=== PATIENT | female | born 1945 | race Two or more races ===

== ENCOUNTER 2018-03-23 09:57 | Emergency (ER) | END 2018-03-23 13:44 | disposition home or self-care (01) ==

== ENCOUNTER 2018-11-28 14:11 | Inpatient (IN) | payer MEDICARE, OTHER ==
[~2018-11-28] VITALS: Ht 162.6 cm; Wt 105.3 kg
[~2018-11-28 14:11] MED LIST: ASPI-903 PO; CEPH-443 PO; CLON-379 PO; ERGO500013 PO; ESOM40CA PO; LANT3I SC; NOVO3I SC; OLME40TA13 PO; ONDA4TAB8 PO; SITA100T11 PO
--- NOTE | 2018-11-28 14:21 | ERD ---
ER Documentation Chief Complaint Chief Complaint Dizziness HPI The patient is a 73-year-old female, presenting to the ER because of dizziness nausea and vomiting and dyspnea that began this morning,. He was uncertain whether she fainted this morning, she had 4 loose bowel movement today. The history is obtained from the daughter. She does not have any neck pain, chest pain, abdominal pain, dysuria, diarrhea. She does not smoke nor drink Past medical history: CAD, history of CHF, diabetes mellitus, chronic kidney disease Past surgical history: Stent PCI last year, cataract surgery ROS All systems reviewed and are negative except as per history of present illness. Medications Home Meds Reported Medications Clonidine Hcl* (Clonidine Hcl*) 0.1 Mg Tab, 0.1 MG PO DAILY, TAB 11/28/18 Carvedilol* (Carvedilol*) 12.5 Mg Tablet, 12.5 MG PO BID, #60 TAB 11/28/18 Insulin Glargine,Hum.rec.anlog (Basaglar Kwikpen U-100) 100 Unit/1 Ml Insuln.pen, 50 UNIT SC QAM, EA 11/28/18 Clopidogrel Bisulfate* (Clopidogrel Bisulfate*) 75 Mg Tablet, 75 MG PO DAILY, #30 TAB 11/28/18 Sitagliptin* (Januvia*) 100 Mg Tablet, 100 MG PO DAILY, #30 TAB 11/28/18 Olmesartan/Hydrochlorothiazide (Olmesartan-Hctz 40-12.5 mg Tab) 1 Each Tablet, 1 EACH PO DAILY, TAB 11/28/18 Aspirin* (Aspirin* EC) 81 Mg Tablet.dr, 81 MG PO DAILY, TAB 11/28/18 Insulin Aspart (Novolog) 100 Unit/1 Ml Vial, 30 UNIT SQ AC DINNER, VIAL 11/28/18 Dexlansoprazole (Dexilant) 60 Mg Cap.dr.mp, 60 MG PO DAILY, #30 CAP 11/28/18 Tolterodine Tartrate* (Tolterodine Tartrate* ER) 4 Mg Cap.er.24h, 4 MG PO DAILY, #30 CAP 11/28/18 Discontinued Reported Medications Insulin Aspart* (Novolog Insulin Pen*) 100 Unit/Ml Soln, 30 UNIT SC WITH DINNER, EA 11/28/18 Ergocalciferol (Vitamin D2) (VITAMIN D2) 50,000 Unit Capsule, 70310 UNIT PO WEEKLY, CAP 03/23/18 Sitagliptin* (Januvia*) 100 Mg Tablet, 100 MG PO DAILY, #30 TAB 03/23/18 Clonidine Hcl* (Clonidine Hcl*) 0.1 Mg Tab, 0.1 MG PO DAILY, TAB 03/23/18 Insulin Aspart* (Novolog Insulin Pen*) 100 Unit/Ml Soln, 20 UNIT SC BID WITH MEALS, EA 03/23/18 Esomeprazole Mag Trihydrate (Nexium) 40 Mg Capsule.dr, 40 MG PO DAILY, #30 CAP 03/23/18 Insulin Glargine* (Lantus*) 100 Unit/Ml Soln, 50 UNIT SC DAILY, #1 VIAL 03/23/18 Olmesartan Medoxomil (Benicar) 40 Mg Tablet, 40 MG PO DAILY, #30 TAB 03/23/18 Aspirin* (Aspirin* Chew) 81 Mg Tab.chew, 81 MG PO DAILY, TAB.CHEW 03/23/18 Discontinued Scripts Ondansetron Hcl* (Zofran*) 4 Mg Tablet, 4 MG PO Q8H PRN for NAUSEA AND/OR VOMITING, #15 TAB Prov:ROSEANNE PLATT MD 03/23/18 Cephalexin* (Keflex*) 500 Mg Capsule, 500 MG PO TID for 7 Days, CAP Prov:ROSEANNE PLATT MD 03/23/18 Allergies Allergies: Coded Allergies: No Known Allergy (Unverified , 11/28/18) PMhx/Soc History of Surgery: Yes (cardiac stents ) Hx Cardiac Disorders: Yes (stent, mi chf) Hx Miscellaneous Medical Probl: Yes (esrd, dm 2) Physical Exam Vitals Vital Signs Date Temp Pulse Resp B/P (MAP) Pulse Ox O2 O2 Flow FiO2 Time Delivery Rate 11/28/18 70 22 98 21 16:17 11/28/18 81 16 123/72 100 Room Air 16:02 (89) 11/28/18 85 16 151/80 98 14:17 (103) Physical Exam Const: No acute distress. Head: Atraumatic. Eyes: Normal Conjunctiva. ENT: Normal External Ears, Nose and Mouth. Neck: Full range of motion. No meningismus. Resp: Clear to auscultation bilaterally. Cardio: Regular rate and rhythm. Abd: Soft, non distended, normal bowel sounds, non tender. Skin: No petechiae or rashes. Back: No midline or flank tenderness. Ext: No cyanosis, or edema. Neur: Awake and alert. No focal deficit Psych: Normal Mood and Affect. Result Diagram: 11/28/18 1441 11/28/18 1441 Results 24 hrs Laboratory Tests Test 11/28/18 14:35 11/28/18 14:41 11/28/18 14:42 11/28/18 15:53 Bedside Glucose 296 mg/dL White Blood Count 12.1 10^3/ul Red Blood Count 4.84 10^6/ul Hemoglobin 13.1 g/dl Hematocrit 39.4 % Mean Corpuscular 81.4 fl Volume Mean Corpuscular 27.1 pg Hemoglobin Mean Corpuscular 33.2 g/dl Hemoglobin Concent Red Cell Distribution 12.9 % Width Platelet Count 132 10^3/UL Mean Platelet Volume 12.2 fl Immature Granulocytes 1.200 % % Neutrophils % 69.9 % Lymphocytes % 18.4 % Monocytes % 5.8 % Eosinophils % 3.9 % Basophils % 0.8 % Nucleated Red Blood 0.0 /100WBC Cells % Immature Granulocytes 0.140 10^3/ul # Neutrophils # 8.5 10^3/ul Lymphocytes # 2.2 10^3/ul Monocytes # 0.7 10^3/ul Eosinophils # 0.5 10^3/ul Basophils # 0.1 10^3/ul Nucleated Red Blood 0.0 10^3/ul Cells # Sodium Level 138 mmol/L Potassium Level 5.8 mmol/L Chloride Level 106 mmol/L Carbon Dioxide Level 24 mmol/L Anion Gap 8 Blood Urea Nitrogen 33 mg/dl Creatinine 1.59 mg/dl Est Glomerular Filtrat mL/min Rate mL/min Glucose Level 320 mg/dl Calcium Level 9.3 mg/dl Troponin I 0.020 ng/ml Prothrombin Time 12.8 Sec Prothrombin Time Ratio 1.0 INR International 0.95 Normalized Ratio Activated 27.3 Sec Partial Thromboplast Time Bedside Urine pH (LAB) 5.5 Bedside Urine Protein 2+ (LAB) Bedside Urine Glucose 0.25% (UA) Bedside Urine Ketones Negative (LAB) Bedside Urine Blood 1+ Bedside Urine Nitrite Negative (LAB) Bedside Urine Negative Leukocyte Esterase (L Test 11/28/18 17:07 Bedside Glucose 250 mg/dL Current Medications Medications Dose Sig/Stiven Start Time Status Last (Trade) Ordered Route PRN Stop Time Admin Dose Reason Admin Sodium 30 gm ONCE STAT 11/28/18 DC 11/28/18 Polystyrene PO 16:01 11/28/18 16:01 Sulfonate 16:14 (Kayexelate 15 Gm Kit (Powder+Sorbi sharlene)) Albuterol 15 mg ONCE STAT 11/28/18 DC 11/28/18 (Proventil INH 16:01 11/28/18 16:16 0.5% (Neb)) 16:14 Insulin 10 unit ONCE STAT 11/28/18 DC 11/28/18 Human IVP 16:01 11/28/18 17:17 Regular 16:14 (Humulin R) Dextrose 50 ml ONCE ONCE 11/28/18 DC (D50w IV 16:30 11/28/18 Syringe) 16:31 Aspirin 162 mg ONCE ONCE 11/28/18 DC 11/28/18 (Aspirin) PO 16:30 11/28/18 17:11 16:31 Ondansetron 4 mg ONCE STAT 11/28/18 DC 11/28/18 HCl (Zofran IV 16:22 11/28/18 16:56 Inj) 16:27 Ondansetron 4 mg STK-MED 11/28/18 DC HCl (Zofran ONCE .ROUTE 16:23 11/28/18 Inj) 16:24 IV Flush 3 ml PER 11/28/18 (NS 3 ml) PROTOCOL IV 17:30 Ondansetron 4 mg Q6H PRN 11/28/18 HCl (Zofran IV 17:30 Inj) NAUSEA/VOMITI NG 650 mg Q6H PRN 11/28/18 Acetaminophen PO .PAIN 1-3 17:30 (Tylenol OR TEMP Tab) 1 tab Q6H PRN 11/28/18 Acetaminophen PO .MOD PAIN 17:30 / 4-6 Hydrocodone Bitart (Hannacroix (5/325)) Morphine 2 mg Q4H PRN 11/28/18 Sulfate IV .SEVERE 17:30 (morphine) PAIN 7-10 Docusate 100 mg Q12H PRN 11/28/18 Sodium PO 17:30 (Colace) .CONSTIPATION Magnesium 30 ml DAILY PRN 11/28/18 Hydroxide PO 17:30 (Milk Of Mag) .CONSTIPATION Heparin 5,000 unit Q12 SC 11/28/18 Sodium 21:00 (Porcine) (Heparin (5000 Units/1ml)) Lorazepam 0.5 mg Q6H PRN 11/28/18 (Ativan) IV ANXIETY 17:30 Albuterol/ 3 ml Q4H RESP 11/28/18 Ipratropium THERAPY PRN 17:30 (Duoneb) HHN SHORTNESS OF BREATH Hydralazine 10 mg Q6H PRN 11/28/18 HCl IV ELEVATED 17:30 (Apresoline) BLOOD PRESSURE 1 tab Q5M PRN 11/28/18 Nitroglycerin SL ANGINA 17:30 (Nitroglyceri n (Sl Tab) 0.4 Mg) Aspirin 325 mg DAILY PO 11/29/18 (Ecotrin) 09:00 Discontinue ONCE ONCE 11/28/18 DC Miscellaneous current oral XX 17:30 11/28/18 sulfonylur... 17:34 Information (* Miscellaneous Pharmacy Order) Diagnostic 1 ea 02 XX 11/29/18 Test (Pha) 02:00 (Accu-Chek) ONCE ONCE 11/28/18 DC Miscellaneous HYPOGLYCEMIA XX 17:30 11/28/18 PROTOCOL 17:34 Information w... (* Miscellaneous Pharmacy Order) Insulin NOVOLOG Q4 SC 11/28/18 Aspart *MILD* 21:00 (Novolog ALGORI... Insulin Pen) Discontinue ONCE ONCE 11/28/18 DC Miscellaneous all previ... XX 17:30 11/28/18 17:34 Information (* Miscellaneous Pharmacy Order) 1 ea NOTE XX 11/28/18 Miscellaneous 18:00 Information Glucose 15 gm Q15M PRN 11/28/18 (Glutose) PO DECREASED 18:00 GLUCOSE Glucose 22.5 gm Q15M PRN 11/28/18 (Glutose) PO DECREASED 18:00 GLUCOSE Dextrose 25 ml Q15M PRN 11/28/18 (D50w IV DECREASED 18:00 Syringe) GLUCOSE Dextrose 50 ml Q15M PRN 11/28/18 (D50w IV DECREASED 18:00 Syringe) GLUCOSE Glucagon 1 mg Q15M PRN 11/28/18 (Glucagen) IM DECREASED 18:00 GLUCOSE Glucose 15 gm Q15M PRN 11/28/18 (Glutose) BUCCAL 18:00 DECREASED GLUCOSE Procedures/MDM [place] [address] Radiology Main Line: [phone] DIAGNOSTIC IMAGING REPORT Patient: SANDY REDMAN : 1945 Age: 73 Sex: F MR #: [id number] [facility] #: [id number] DOS: 11/28/18 1427 Ordering MD: LIVAN RIDER MD Location: E/R Room/Bed: PROCEDURE: Noncontrast CT Head. CLINICAL INDICATION: Syncope. TECHNIQUE: Noncontrast CT of the head was obtained. The administered radiation dose was CTDI vol = 48.03 mGy, DLP = 822.63 mGy-cm. One or more of the following dose reduction techniques were used: Automated exposure control, Adjustment of the mA and/or kV according to patient size, or Use of iterative reconstruction technique. DICOM images are available. COMPARISON: There are no similar studies submitted for comparison. FINDINGS: There is moderate to severe ventricular dilatation greater than minimal sulcal prominence suggesting central greater than peripheral volume loss. There is mild periventricular hypoattenuation suggesting chronic microvascular ischemic changes. There are moderate vascular calcifications within the intracranial carotid arteries. There is loss of espinoza-white differentiation within the right temporal parietal occipital region suggesting acute / recent infarction. There is no acute intracranial hemorrhage. No midline shift is identified. The patient is status post right lens surgery. There is mild to moderate left maxillary sinus air fluid level suggesting acute sinusitis. No destructive osseous lesion is identified. IMPRESSION: 1. Loss of espinoza-white differentiation within the right temporal parietal occipital region suggesting acute / recent infarction. Consider CTA of the head/neck or noncontrast MRI of the brain as clinically warranted. 2. No acute intracranial hemorrhage. 3. Moderate to severe ventriculomegaly which is greater than sulcal prominence suggesting central greater than peripheral volume loss. A component of normal pressure hydrocephalus is not excluded. 4. Mild chronic microvascular ischemic changes. 5. Mild to moderate left maxillary sinus air fluid level suggesting acute sinusitis. Further findings as detailed above. Critical findings were discussed with Livan Gresham on 11/28/2018 at 3:04 PM. RPTAT: PP .Justino Boogie MD, MD Date Time Electronically viewed and signed by .Justino Boogie MD, MD on 11/28/2018 15:07 .F/ CC: LIVAN RIDER MD [phone] [place] [address] Radiology Main Line: [phone] DIAGNOSTIC IMAGING REPORT Patient: SANDY REDMAN : 1945 Age: 73 Sex: F MR #: [id number] DOS: 11/28/18 1427 Ordering MD: LIVAN RIDER MD Location: E/R Room/Bed: PROCEDURE: XR Chest. CLINICAL INDICATION: Syncope . TECHNIQUE: Single frontal chest x-ray. COMPARISON: None. FINDINGS: Cardiomegaly with hilar vascular congestion is present. There are no alveolar infiltrates or effusions. There is right upper lung atelectasis. There is a right paratracheal soft tissue widening with left-sided deviation of the trachea. .. Calcific atherosclerosis of the aorta is present.. The osseous structures are intact. IMPRESSION: Cardiomegaly with calcified aorta. Hilar vascular congestion. Right paratracheal opacity or mass with left-sided tracheal deviation. CT scan of the chest is advised to further evaluate. Results related to ordering physician via [employer]. . RPTAT: GG .Niko Rose MD, Date Time Electronically viewed and signed by .Niko Rose MD, on 11/28/2018 15:21 .L/ CC: LIVAN RIDER MD [phone] EKG: Read by emergency physician Rate/Rhythm: Atrial Fibrillation 77 beats/min QRS, ST, T-waves: No ST elevation, no T inversion , LVH Impression: Abnormal EKG MEDICAL MAKING DECISION: The patient is a 73-year-old female, presenting with acute CVA, acute hyperkalemia, suspected acute syncope, thrombocytopenia, hematuria. She was treated with 1 ampule D50 IV, 10 units of regular insulin IV, Kayexalate 30 g p.o. and albuterol 15 mg nebulizer for acute hyperkalemia, aspirin 162 mg p.o. for acute CVA with good response The differential diagnoses considered include but are not limited to electrolyte imbalance, arrhythmogenic right ventricular dysplasia, Brugada syndrome, left ventricular hypertrophy, pulmonary embolism, QT abnormality, Cosby -Parkinson-White. Departure Diagnosis: Primary Impression: CVA (cerebral vascular accident) Additional Impressions: Hyperkalemia Hematuria Thrombocytopenia Condition: Stable Comments I discussed the findings with the patient. I discussed the patient with Dr Sarabia at 4:05 p , who was made aware of the lab, the treatment, the patient condition. The patient is admitted to Tel Disclaimer: Inadvertent spelling and grammatical errors are likely due to EHR/dictation software use and do not reflect on the overall quality of patient care. Also, please note that the electronic time recorded on this note does not necessarily reflect the actual time of the patient encounter. LIVAN RIDER MD Nov 28, 2018 14:21
[2018-11-28] MEDS ORDERED: TOLT4CAP13 PO (15:32)
[2018-11-28] MEDS ORDERED: DEXL60CA2 PO (15:32)
[2018-11-28] MEDS ORDERED: NOVO3I SC (15:33)
[2018-11-28] MEDS ORDERED: NOV SQ (15:34)
[2018-11-28] MEDS ORDERED: ASPI-817 PO (15:34)
[2018-11-28] MEDS ORDERED: SITA100T11 PO (15:36)
[2018-11-28] MEDS ORDERED: CLOP75TA19 PO (15:36)
[2018-11-28] MEDS ORDERED: OLME1TAB83 PO (15:36)
[2018-11-28] MEDS ORDERED: CARV12.579 PO (15:37)
[2018-11-28] MEDS ORDERED: INSU100I33 SC (15:37)
[2018-11-28] MEDS ORDERED: CLON-379 PO (15:38)
[2018-11-28] MEDS ORDERED: SODIUM POLYSTYRENE 15 GM KIT (POWDER + SORBITOL) PO STA (16:01)
[2018-11-28] MEDS ORDERED: ALBUTEROL 0.5% (NEB) 2.5 MG/0.5 ML AMP INH STA (16:01)
[2018-11-28] MEDS ORDERED: INSULIN REGULAR, HUMAN 100 UNIT/1 ML 3ML VIAL IVP STA (16:01)
[2018-11-28] MEDS ORDERED: ONDANSETRON 4 MG INJ IV STA (16:22)
[2018-11-28] MEDS ORDERED: ONDANSETRON 4 MG INJ ONE (16:23)
[2018-11-28] MEDS ORDERED: ASPIRIN 81 MG TAB PO ONE (16:30)
[2018-11-28] MEDS ORDERED: DEXTROSE 50% 50 ML SYRINGE IV ONE (16:30)
[2018-11-28] MEDS ORDERED: hydrALAzine 20 MG INJ IV PRN (17:30)
[2018-11-28] MEDS ORDERED: DOCUSATE SODIUM 100 MG CAP PO PRN (17:30)
[2018-11-28] MEDS ORDERED: HYDROCODONE/APAP (5/325) TAB PO PRN (17:30)
[2018-11-28] MEDS ORDERED: NACL 0.9% 3 ML SYG IV SCH (17:30)
[2018-11-28] MEDS ORDERED: MAGNESIUM HYDROXIDE 30ML CUP PO PRN (17:30)
[2018-11-28] MEDS ORDERED: ALBUTEROL/IPRATROPIUM (NEB) 3 ML AMP HHN PRN (17:30)
[2018-11-28] MEDS ORDERED: LORAZEPAM 2 MG INJ IV PRN (17:30)
[2018-11-28] MEDS ORDERED: morphine 2 MG INJ IV PRN (17:30)
[2018-11-28] MEDS ORDERED: NITROGLYCERIN (SL) 0.4 MG TAB SL PRN (17:30)
[2018-11-28] MEDS ORDERED: ACETAMINOPHEN 325 MG TAB PO PRN (17:30)
[2018-11-28] MEDS ORDERED: GLUCOSE GEL 15 GRAM TUBE BUCCAL PRN (18:00)
[2018-11-28] MEDS ORDERED: DEXTROSE 50% 50 ML SYRINGE IV PRN ×2 (18:00)
[2018-11-28] MEDS ORDERED: GLUCAGON 1 MG INJ IM PRN (18:00)
[2018-11-28] MEDS ORDERED: GLUCOSE GEL 15 GRAM TUBE PO PRN ×2 (18:00)
--- NOTE | 2018-11-28 20:40 | HP ---
DATE OF ADMISSION: 11/28/2018 IDENTIFICATION: This is a 73-year-old female. CHIEF COMPLAINT: Dizziness, near syncope. HISTORY OF PRESENT ILLNESS: A 73-year-old female with past medical history of CHF, CAD with stent pl acement, hypertension, type 2 diabetes, CKD, who comes in with dizziness. The patient also complaine d of some nausea and some nonbilious, nonbloody vomiting symptoms again this morning. The patient ma y have had a near syncopal event in the morning. She also complained of some loose stools but no ove rt diarrhea. Denied any chest pain or shortness of breath. No constipation, no abdominal pain, no f henry or chills. When she came in today, she had imaging study performed of the brain CT scan that s howed loss of espinoza-white differentiation within the right temporoparietal occipital region suggesting acute or recent infarction. There is also moderate to severe ventriculomegaly which is greater than sulcal prominence suggesting central greater than peripheral volume loss, a component of normal pres sure hydrocephalus not excluded. PAST MEDICAL HISTORY: As stated above. ALLERGIES: NO KNOWN DRUG ALLERGIES. MEDICATIONS AT HOME: 1. Plavix 75 mg daily. 2. Coreg 12.5 mg b.i.d. 3. Clonidine 0.1 mg daily. 4. Olmesartan/hydrochlorothiazide 40/12.5 one tab daily. 5. Aspirin 81 mg daily. 6. Dexilant 60 mg daily. 7. Aspart insulin 30 units with dinner. 8. Basaglar insulin 50 units in the morning. 9. Januvia 100 mg daily. 10. Tolterodine tartrate 4 mg daily. PAST SURGICAL HISTORY: Stent placement in the past. SOCIAL HISTORY: Negative for drinking or IV drug abuse. Unclear about smoking history. FAMILY HISTORY: Noncontributory today. PHYSICAL EXAMINATION: VITAL SIGNS: T-max apparently afebrile, pulse 70 to 85, respirations 16 to 22, blood pressure is 123 to 151 systolic over 72 to 80 diastolic, satting 100% room air. GENERAL: The patient is lying in bed, answering questions appropriately. No acute distress. HEENT: Pupils equal, round, react to light. Extraocular muscles are intact. NECK: Supple, no thyromegaly. LUNGS: Clear to auscultation bilaterally. CARDIOVASCULAR: S1, S2 heard. No rubs or gallops. ABDOMEN: Soft, nontender, nondistended. Normal bowel sounds. No rebound or guarding. MUSCULOSKELETAL: No lower extremity edema bilaterally. NEUROLOGIC: She has got 5/5 strength both in the upper and lower extremities bilaterally. Sensation appears to be intact in the upper and lower extremities bilaterally. Cranial nerves II through XII appear to be intact. Gait was not assessed. LABORATORIES: WBC 12.1, hemoglobin 13.1, hematocrit 39.4, platelets 132. Sodium 138, potassium 5.8, chloride 106, CO2 24, BUN 33, creatinine 1.59, glucose 320. UA shows negative nitrites, negative le ukocyte esterase. We mentioned the head CT findings. There was also a chest x-ray performed that sh ows some cardiomegaly with calcified aorta, hilar vascular congestion, right paratracheal opacity or mass with left-sided tracheal deviation. CT scan of the chest is advised to further evaluate and car otid Doppler study has already been performed, shows no evidence for any hemodynamically significant stenosis in the bilateral internal carotid arteries. ASSESSMENT AND PLAN: A 73-year-old female coming in with dizziness and near syncopal event, nausea, vomiting with signs of acute or recent infarct of the brain: 1. Acute cerebrovascular accident. Again, this is based on the head CT scan imaging results. So we will admit the patient to allow for permissive hypertension at this time. Get neurology consult. C heck echocardiogram. Get PT, OT and speech therapy evaluations. Neuro checks every 4 hours. High-d ose aspirin. Continue her Plavix as well. Place patient on statin. Get an MRI of the brain as well . 2. History of coronary artery disease with PCI. Again, continue the aspirin and Plavix. She will b e on a slightly higher dose of aspirin given the acute stroke. 3. History of congestive heart failure. Again, monitor for now given acute stroke while allowing fo r permissive hypertension, so we are holding her home blood pressure medicines at this time. 4. Hypertension. See above. 5. Type 2 diabetes. Continue home insulins for now. Add sliding scale insulin. Follow up A1c. 6. Hyperkalemia. Again, she did receive in the ER, Kayexalate, albuterol and Humulin insulin. Mira tor BMP. 7. Signs of right paratracheal opacity or mass with left-sided tracheal deviation. We will go ahead and get the CT scan of the chest to further evaluate. Dictated By: BENNETT CONWAY Conf#: [id number] DID#: [id number]
--- NOTE | 2018-11-28 21:00 | CONSI ---
Assessment/Plan Assessment/Plan Assessment/Plan (Recall) 73 F w/ multiple cerebrovascular risk factors, who presents for evaluation of dizziness in the context of GI Sx.. She was noted on head CT to have an acute appearing R hemisphere infarction, for which neurology is consulted.. CUS is unremarkable LDL is at goal P: MRI/A brain for further characterization Agree w/ plavix daily for secondary stroke prevention Await Echo read Add ESR, RPR, UDS Consider 30-day holter as outpatient if the above is unrevealing PT/OT/ST as necessary Other management per primary Will follow clinically Consultation Date/Type/Reason Admit Date/Time Nov 28, 2018 at 16:28 Type of Consult Neurology Reason for Consultation stroke Requesting Provider: BENNETT REHMAN Date/Time of Note DATE: 11/28/18 TIME: 20:58 Hx of Present Illness A 73-year-old female with past medical history of CHF, CAD with stent placement, hypertension, type 2 diabetes, CKD, who comes in with dizziness. The patient also complained of some nausea and some nonbilious, nonbloody vomiting symptoms again this morning. The patient may have had a near syncopal event in the morning. She also complained of some loose stools but no overt diarrhea. D enied any chest pain or shortness of breath. No constipation, no abdominal pain, no fevers or chills. When she came in today, she had imaging study performed of the brain CT scan that showed loss of espinoza-white differentiation within the right temporoparietal occipital region suggesting acute or recent infarction. There is also moderate to severe ventriculomegaly which is greater than sulcal prominence suggesting central greater than peripheral volume loss, a component of normal pressure hydrocephalus not excluded. She was noted on head CT to have an acute appearing infarction in the right hemisphere, for which neurology is consulted. 12 PT ROS ow neg Objective Exam Vitals Vital Signs Date Temp Pulse Resp B/P (MAP) Pulse Ox O2 O2 Flow FiO2 Time Delivery Rate 11/28/18 86 18 134/66 97 Room Air 19:30 (88) 11/28/18 21 16:17 Exam PE: Gen Appearance: No Apparent Distress HEENT: Normocephalic Cardiovascular: Regular rate Lungs: Clear bilaterally Abdomen: Soft Extremities: Dry NE: The patient was alert and oriented, able to spell WORLD backwards, and able to recall all three words after a five minute delay. Language was normal. Fund of knowledge was normal. Pupils were equal and reactive to light. There was no afferent pupillary defect. Visual moore were normal. Funduscopic examination was limited. Extra-ocular movements were full. Ptosis was absent. There was no nystagmus. Facial sensation was normal. Face was symmetric with normal strength. Hearing was intact. Palate movements were normal. Neck strength was normal. There was normal tongue bulk and speed of movement. Tone was normal. Muscle bulk was normal. I did not see fasciculations. Arms and legs were strong. Vibration sensation was normal. Temperature and pinprick sensation was normal. Rapid alternating movements were normal. There was no dysmetria. There was no intention tremor. Gait was deferred due to bedrest. Arm and leg reflexes were 2+ and symmetric. Valadez's sign was absent. Plantar responses were flexor. Results Result Diagram: 11/28/18 1441 11/28/18 1441 Results 24hrs Laboratory Tests Test 11/28/18 14:35 11/28/18 14:41 11/28/18 14:42 11/28/18 15:53 Bedside Glucose 296 H White Blood Count 12.1 H Red Blood Count 4.84 Hemoglobin 13.1 Hematocrit 39.4 Mean Corpuscular Volume 81.4 L Mean Corpuscular 27.1 L Hemoglobin Mean Corpuscular 33.2 Hemoglobin Concent Red Cell Distribution 12.9 Width Platelet Count 132 L Mean Platelet Volume 12.2 H Immature Granulocytes % 1.200 H Neutrophils % 69.9 Lymphocytes % 18.4 Monocytes % 5.8 Eosinophils % 3.9 Basophils % 0.8 Nucleated Red Blood 0.0 Cells % Immature Granulocytes # 0.140 H Neutrophils # 8.5 H Lymphocytes # 2.2 Monocytes # 0.7 Eosinophils # 0.5 Basophils # 0.1 Nucleated Red Blood 0.0 Cells # Sodium Level 138 Potassium Level 5.8 H Chloride Level 106 Carbon Dioxide Level 24 Anion Gap 8 Blood Urea Nitrogen 33 H Creatinine 1.59 H Est Glomerular Filtrat Rate mL/min Glucose Level 320 H Calcium Level 9.3 Troponin I 0.020 Prothrombin Time 12.8 Prothrombin Time Ratio 1.0 INR International 0.95 Normalized Ratio Activated 27.3 Partial Thromboplast Time Bedside Urine pH (LAB) 5.5 Bedside Urine Protein 2+ H (LAB) Bedside Urine Glucose 0.25% H (UA) Bedside Urine Ketones Negative (LAB) Bedside Urine Blood 1+ H Bedside Urine Nitrite Negative (LAB) Bedside Urine Negative Leukocyte Esterase (L Test 11/28/18 17:07 11/28/18 18:21 11/28/18 18:52 Bedside Glucose 250 H 233 H Creatine Kinase 29 Creatine Kinase Index 4.5 Creatinine Kinase MB 1.30 (Mass) Troponin I 0.031 Free Thyroxine 1.29 Past Medical History reviewed Home Meds Reported Medications Clonidine Hcl* (Clonidine Hcl*) 0.1 Mg Tab, 0.1 MG PO DAILY, TAB 11/28/18 Carvedilol* (Carvedilol*) 12.5 Mg Tablet, 12.5 MG PO BID, #60 TAB 11/28/18 Insulin Glargine,Hum.rec.anlog (Basaglar Kwikpen U-100) 100 Unit/1 Ml Insuln.pen, 50 UNIT SC QAM, EA 11/28/18 Clopidogrel Bisulfate* (Clopidogrel Bisulfate*) 75 Mg Tablet, 75 MG PO DAILY, #30 TAB 11/28/18 Sitagliptin* (Januvia*) 100 Mg Tablet, 100 MG PO DAILY, #30 TAB 11/28/18 Olmesartan/Hydrochlorothiazide (Olmesartan-Hctz 40-12.5 mg Tab) 1 Each Tablet, 1 EACH PO DAILY, TAB 11/28/18 Aspirin* (Aspirin* EC) 81 Mg Tablet.dr, 81 MG PO DAILY, TAB 11/28/18 Insulin Aspart (Novolog) 100 Unit/1 Ml Vial, 30 UNIT SQ AC DINNER, VIAL 11/28/18 Dexlansoprazole (Dexilant) 60 Mg Cap.drKameronmp, 60 MG PO DAILY, #30 CAP 11/28/18 Tolterodine Tartrate* (Tolterodine Tartrate* ER) 4 Mg Cap.er.24h, 4 MG PO DAILY, #30 CAP 11/28/18 Discontinued Reported Medications Insulin Aspart* (Novolog Insulin Pen*) 100 Unit/Ml Soln, 30 UNIT SC WITH DINNER, EA 11/28/18 Ergocalciferol (Vitamin D2) (VITAMIN D2) 50,000 Unit Capsule, 36010 UNIT PO WEEKLY, CAP 03/23/18 Sitagliptin* (Januvia*) 100 Mg Tablet, 100 MG PO DAILY, #30 TAB 10/24/18 Clonidine Hcl* (Clonidine Hcl*) 0.1 Mg Tab, 0.1 MG PO DAILY, TAB 03/23/18 Insulin Aspart* (Novolog Insulin Pen*) 100 Unit/Ml Soln, 20 UNIT SC BID WITH MEALS, EA 03/23/18 Esomeprazole Mag Trihydrate (Nexium) 40 Mg Capsule.dr, 40 MG PO DAILY, #30 CAP 03/23/18 Insulin Glargine* (Lantus*) 100 Unit/Ml Soln, 50 UNIT SC DAILY, #1 VIAL 03/23/18 Olmesartan Medoxomil (Benicar) 40 Mg Tablet, 40 MG PO DAILY, #30 TAB 03/23/18 Aspirin* (Aspirin* Chew) 81 Mg Tab.chew, 81 MG PO DAILY, TAB.CHEW 03/23/18 Discontinued Scripts Ondansetron Hcl* (Zofran*) 4 Mg Tablet, 4 MG PO Q8H PRN for NAUSEA AND/OR VOMITING, #15 TAB Prov:ROSEANNE PLATT MD 03/23/18 Cephalexin* (Keflex*) 500 Mg Capsule, 500 MG PO TID for 7 Days, CAP Prov:ROSEANNE PLATT MD 03/23/18 Medications Current Medications IV Flush (NS 3 ml) 3 ml PER PROTOCOL IV ; Start 11/28/18 at 17:30 Ondansetron HCl (Zofran Inj) 4 mg Q6H PRN IV NAUSEA/VOMITING; Start 11/28/18 at 17:30 Acetaminophen (Tylenol Tab) 650 mg Q6H PRN PO .PAIN 1-3 OR TEMP; Start 11/28/18 at 17:30 Acetaminophen/ Hydrocodone Bitart ([place] (5/325)) 1 tab Q6H PRN PO .MOD PAIN 4- 6; Start 11/28/18 at 17:30 Morphine Sulfate (morphine) 2 mg Q4H PRN IV .SEVERE PAIN 7-10; Start 11/28/18 at 17:30 Docusate Sodium (Colace) 100 mg Q12H PRN PO .CONSTIPATION; Start 11/28/18 at 17:30 Magnesium Hydroxide (Milk Of Mag) 30 ml DAILY PRN PO .CONSTIPATION; Start 11/28/18 at 17:30 Heparin Sodium (Porcine) (Heparin (5000 Units/1ml)) 5,000 unit Q12 SC ; Start 11/28/18 at 21:00 Lorazepam (Ativan) 0.5 mg Q6H PRN IV ANXIETY; Start 11/28/18 at 17:30 Albuterol/ Ipratropium (Duoneb) 3 ml Q4H RESP THERAPY PRN HHN SHORTNESS OF BREATH; Start 11/28/18 at 17:30 Hydralazine HCl (Apresoline) 10 mg Q6H PRN IV ELEVATED BLOOD PRESSURE; Start 11/28/18 at 17:30 Nitroglycerin (Nitroglycerin (Sl Tab) 0.4 Mg) 1 tab Q5M PRN SL ANGINA; Start 11/28/18 at 17:30 Aspirin (Ecotrin) 325 mg DAILY PO ; Start 11/29/18 at 09:00 Diagnostic Test (Pha) (Accu-Chek) 1 ea 02 XX ; Start 11/29/18 at 02:00 Insulin Aspart (Novolog Insulin Pen) NOVOLOG *MILD* ALGORI... Q4 SC ; Start 11/28/18 at 21:00 Miscellaneous Information 1 ea NOTE XX ; Start 11/28/18 at 18:00 Glucose (Glutose) 15 gm Q15M PRN PO DECREASED GLUCOSE; Start 11/28/18 at 18:00 Glucose (Glutose) 22.5 gm Q15M PRN PO DECREASED GLUCOSE; Start 11/28/18 at 18:00 Dextrose (D50w Syringe) 25 ml Q15M PRN IV DECREASED GLUCOSE; Start 11/28/18 at 18:00 Dextrose (D50w Syringe) 50 ml Q15M PRN IV DECREASED GLUCOSE; Start 11/28/18 at 18:00 Glucagon (Glucagen) 1 mg Q15M PRN IM DECREASED GLUCOSE; Start 11/28/18 at 18:00 Glucose (Glutose) 15 gm Q15M PRN BUCCAL DECREASED GLUCOSE; Start 11/28/18 at 18:00 Clopidogrel Bisulfate (plaVIX) 75 mg DAILY PO ; Start 11/29/18 at 09:00 Pantoprazole (Protonix Tab) 40 mg DAILY@06 PO ; Start 11/29/18 at 06:00 Allergies: Coded Allergies: No Known Allergy (Unverified , 11/28/18) Social History Smoking Status: Never smoker ORTIZ REDDING Nov 28, 2018 21:00
[2018-11-28] MEDS: HEPARIN 5,000 UNIT/1 ML VIAL SC SCH (22:30)
[2018-11-28] MEDS: INSULIN ASPART [NOVOLOG] 3 ML PEN SC SCH (22:56)
[2018-11-28 23:05] VITALS: Ht 162.6 cm; Wt 105.3 kg
[2018-11-29] VITALS (7 sets, daily range): BP systolic 123–160; BP diastolic 63–90; PULSE 78–100; RESP 18–20
[2018-11-29] MEDS: INSULIN ASPART [NOVOLOG] 3 ML PEN SC SCH ×3 (01:00→09:23)
[2018-11-29] MEDS: ACCU-CHEK XX SCH (02:12)
[2018-11-29] MEDS: PANTOPRAZOLE (EC) 40 MG TAB PO SCH (05:53)
[2018-11-29] MEDS: CLOPIDOGREL 75 MG TAB PO SCH (08:57)
[2018-11-29] MEDS: ASPIRIN (EC) 325 MG TAB PO SCH (08:58)
[2018-11-29] MEDS: HEPARIN 5,000 UNIT/1 ML VIAL SC SCH ×3 (09:02→21:00)
--- NOTE | 2018-11-29 11:21 | PN ---
Date/Time of Note Date/Time of Note DATE: 11/29/18 TIME: 11:12 Assessment/Plan VTE Prophylaxis Risk score (from Ns)>0 risk: 4 SCD applied (from Ns): No SCD contraindicated: other Pharmacological prophylaxis: heparin Lines/Catheters IV Catheter Type (from [facility]): [place] Assessment/Plan Hospital Course S: Seen by neurology team yesterday. Per nursing staff patient has refused MRI. O: VS - see below PE: GENERAL: lying in bed, answering questions appropriately. No acute distress. HEENT: Pupils equal, round, react to light. Extraocular muscles are intact. NECK: Supple, no thyromegaly. LUNGS: Clear to auscultation bilaterally. CARDIOVASCULAR: S1, S2 heard. No rubs or gallops. ABDOMEN: Soft, nontender, nondistended. Normal bowel sounds. No rebound or guarding. MUSCULOSKELETAL: No lower extremity edema bilaterally. NEUROLOGIC: She has got 5/5 strength both in the upper and lower extremities bilaterally. Sensation appears to be intact in the upper and lower extremities bilaterally. Cranial nerves II through XII appear to be intact. ASSESSMENT AND PLAN: 73-year-old female coming in with dizziness and near syncopal event, nausea, vomiting with signs of acute or recent infarct of the brain. 1. Acute cerebrovascular accident-this is what it appears to be, based on what was found on the head CT scan imaging results. -For now continue to allow for permissive hypertension -Follow-up further recommendations from neurology consult, echocardiogram. -Continue PT, OT and speech therapy evaluations. - Neuro checks every 4 hours, High-dose aspirin, Plavix as well. -Lipitor 80 mg daily 2. History of coronary artery disease with PCI. -Again, continue the aspirin and Plavix. 3. History of congestive heart failure. - Again, monitor for now given acute stroke while allowing for permissive hypertension, so we are holding her home blood pressure medicines at this time. 4. Hypertension. See above. 5. Type 2 diabetes-A1c was 6.5 - Continue home insulins for now, sliding scale insulin. 6. Hyperkalemia. Again, she did receive in the ER, Kayexalate, albuterol and Humulin insulin. - Monitor BMP. 7. Signs of right paratracheal opacity or mass with left-sided tracheal deviation. -Follow-up results of CT scan of the chest to further evaluate. Result Diagram: 11/29/18 0548 11/29/18 0548 Results 24hrs Laboratory Tests Test 11/28/18 14:35 11/28/18 14:41 11/28/18 14:42 11/28/18 15:53 Bedside Glucose 296 H White Blood Count 12.1 H Red Blood Count 4.84 Hemoglobin 13.1 Hematocrit 39.4 Mean Corpuscular Volume 81.4 L Mean Corpuscular 27.1 L Hemoglobin Mean Corpuscular 33.2 Hemoglobin Concent Red Cell Distribution 12.9 Width Platelet Count 132 L Mean Platelet Volume 12.2 H Immature Granulocytes % 1.200 H Neutrophils % 69.9 Lymphocytes % 18.4 Monocytes % 5.8 Eosinophils % 3.9 Basophils % 0.8 Nucleated Red Blood 0.0 Cells % Immature Granulocytes # 0.140 H Neutrophils # 8.5 H Lymphocytes # 2.2 Monocytes # 0.7 Eosinophils # 0.5 Basophils # 0.1 Nucleated Red Blood 0.0 Cells # Sodium Level 138 Potassium Level 5.8 H Chloride Level 106 Carbon Dioxide Level 24 Anion Gap 8 Blood Urea Nitrogen 33 H Creatinine 1.59 H Est Glomerular Filtrat Rate mL/min Glucose Level 320 H Calcium Level 9.3 Troponin I 0.020 Prothrombin Time 12.8 Prothrombin Time Ratio 1.0 INR International 0.95 Normalized Ratio Activated 27.3 Partial Thromboplast Time Bedside Urine pH (LAB) 5.5 Bedside Urine Protein 2+ H (LAB) Bedside Urine Glucose 0.25% H (UA) Bedside Urine Ketones Negative (LAB) Bedside Urine Blood 1+ H Bedside Urine Nitrite Negative (LAB) Bedside Urine Negative Leukocyte Esterase (L Test 11/28/18 17:07 11/28/18 18:21 11/28/18 18:52 11/28/18 22:04 Bedside Glucose 250 H 233 H 202 Creatine Kinase 29 Creatine Kinase Index 4.5 Creatinine Kinase MB 1.30 (Mass) Troponin I 0.031 Free Thyroxine 1.29 Test 11/28/18 23:14 11/28/18 23:31 11/29/18 02:11 11/29/18 05:48 Bedside Glucose 208 155 139 Creatine Kinase 27 Creatine Kinase Index 4.9 Creatinine Kinase MB 1.31 (Mass) Troponin I 0.040 White Blood Count 11.8 H Red Blood Count 4.84 Hemoglobin 13.2 Hematocrit 39.5 Mean Corpuscular Volume 81.6 L Mean Corpuscular 27.3 L Hemoglobin Mean Corpuscular 33.4 Hemoglobin Concent Red Cell Distribution 13.0 Width Platelet Count 136 L Mean Platelet Volume 11.9 H Immature Granulocytes % 0.900 H Neutrophils % 59.0 Lymphocytes % 28.5 Monocytes % 6.5 Eosinophils % 4.5 Basophils % 0.6 Nucleated Red Blood 0.0 Cells % Immature Granulocytes # 0.110 H Neutrophils # 6.9 Lymphocytes # 3.4 H Monocytes # 0.8 Eosinophils # 0.5 Basophils # 0.1 Nucleated Red Blood 0.0 Cells # Sodium Level 142 Potassium Level 4.9 Chloride Level 108 Carbon Dioxide Level 25 Anion Gap 9 Blood Urea Nitrogen 31 H Creatinine 1.48 H Est Glomerular Filtrat Rate mL/min Glucose Level 142 # Hemoglobin A1c 6.5 H Calcium Level 9.5 Phosphorus Level 3.9 Magnesium Level 1.8 Triglycerides Level 419 H Cholesterol Level 170 LDL Cholesterol, 52 Calculated HDL Cholesterol 34 Cholesterol/HDL Ratio 5.0 Thyroid Stimulating 0.550 Hormone (TSH) Test 11/29/18 09:08 Bedside Glucose 201 Exam/Review of Systems Exam Vitals Vital Signs Date Temp Pulse Resp B/P (MAP) Pulse Ox O2 O2 Flow FiO2 Time Delivery Rate 11/29/18 98.5 87 20 144/65 97 Room Air 07:38 (91) 11/28/18 21 16:17 Results Results 24hrs Laboratory Tests Test 11/28/18 14:35 11/28/18 14:41 11/28/18 14:42 11/28/18 15:53 Bedside Glucose 296 H White Blood Count 12.1 H Red Blood Count 4.84 Hemoglobin 13.1 Hematocrit 39.4 Mean Corpuscular Volume 81.4 L Mean Corpuscular 27.1 L Hemoglobin Mean Corpuscular 33.2 Hemoglobin Concent Red Cell Distribution 12.9 Width Platelet Count 132 L Mean Platelet Volume 12.2 H Immature Granulocytes % 1.200 H Neutrophils % 69.9 Lymphocytes % 18.4 Monocytes % 5.8 Eosinophils % 3.9 Basophils % 0.8 Nucleated Red Blood 0.0 Cells % Immature Granulocytes # 0.140 H Neutrophils # 8.5 H Lymphocytes # 2.2 Monocytes # 0.7 Eosinophils # 0.5 Basophils # 0.1 Nucleated Red Blood 0.0 Cells # Sodium Level 138 Potassium Level 5.8 H Chloride Level 106 Carbon Dioxide Level 24 Anion Gap 8 Blood Urea Nitrogen 33 H Creatinine 1.59 H Est Glomerular Filtrat Rate mL/min Glucose Level 320 H Calcium Level 9.3 Troponin I 0.020 Prothrombin Time 12.8 Prothrombin Time Ratio 1.0 INR International 0.95 Normalized Ratio Activated 27.3 Partial Thromboplast Time Bedside Urine pH (LAB) 5.5 Bedside Urine Protein 2+ H (LAB) Bedside Urine Glucose 0.25% H (UA) Bedside Urine Ketones Negative (LAB) Bedside Urine Blood 1+ H Bedside Urine Nitrite Negative (LAB) Bedside Urine Negative Leukocyte Esterase (L Test 11/28/18 17:07 11/28/18 18:21 11/28/18 18:52 11/28/18 22:04 Bedside Glucose 250 H 233 H 202 Creatine Kinase 29 Creatine Kinase Index 4.5 Creatinine Kinase MB 1.30 (Mass) Troponin I 0.031 Free Thyroxine 1.29 Test 11/28/18 23:14 11/28/18 23:31 11/29/18 02:11 11/29/18 05:48 Bedside Glucose 208 155 139 Creatine Kinase 27 Creatine Kinase Index 4.9 Creatinine Kinase MB 1.31 (Mass) Troponin I 0.040 White Blood Count 11.8 H Red Blood Count 4.84 Hemoglobin 13.2 Hematocrit 39.5 Mean Corpuscular Volume 81.6 L Mean Corpuscular 27.3 L Hemoglobin Mean Corpuscular 33.4 Hemoglobin Concent Red Cell Distribution 13.0 Width Platelet Count 136 L Mean Platelet Volume 11.9 H Immature Granulocytes % 0.900 H Neutrophils % 59.0 Lymphocytes % 28.5 Monocytes % 6.5 Eosinophils % 4.5 Basophils % 0.6 Nucleated Red Blood 0.0 Cells % Immature Granulocytes # 0.110 H Neutrophils # 6.9 Lymphocytes # 3.4 H Monocytes # 0.8 Eosinophils # 0.5 Basophils # 0.1 Nucleated Red Blood 0.0 Cells # Sodium Level 142 Potassium Level 4.9 Chloride Level 108 Carbon Dioxide Level 25 Anion Gap 9 Blood Urea Nitrogen 31 H Creatinine 1.48 H Est Glomerular Filtrat Rate mL/min Glucose Level 142 # Hemoglobin A1c 6.5 H Calcium Level 9.5 Phosphorus Level 3.9 Magnesium Level 1.8 Triglycerides Level 419 H Cholesterol Level 170 LDL Cholesterol, 52 Calculated HDL Cholesterol 34 Cholesterol/HDL Ratio 5.0 Thyroid Stimulating 0.550 Hormone (TSH) Test 11/29/18 09:08 Bedside Glucose 201 Medications Medication Current Medications IV Flush (NS 3 ml) 3 ml PER PROTOCOL IV ; Start 11/28/18 at 17:30 Ondansetron HCl (Zofran Inj) 4 mg Q6H PRN IV NAUSEA/VOMITING; Start 11/28/18 at 17:30 Acetaminophen (Tylenol Tab) 650 mg Q6H PRN PO .PAIN 1-3 OR TEMP; Start 11/28/18 at 17:30 Acetaminophen/ Hydrocodone Bitart ([place] (5/325)) 1 tab Q6H PRN PO .MOD PAIN 4- 6; Start 11/28/18 at 17:30 Morphine Sulfate (morphine) 2 mg Q4H PRN IV .SEVERE PAIN 7-10; Start 11/28/18 at 17:30 Docusate Sodium (Colace) 100 mg Q12H PRN PO .CONSTIPATION; Start 11/28/18 at 17:30 Magnesium Hydroxide (Milk Of Mag) 30 ml DAILY PRN PO .CONSTIPATION; Start 11/28/18 at 17:30 Heparin Sodium (Porcine) (Heparin (5000 Units/1ml)) 5,000 unit Q12 SC Last administered on 11/29/18at 09:02; Admin Dose 5,000 UNIT; Start 11/28/18 at 21:00 Lorazepam (Ativan) 0.5 mg Q6H PRN IV ANXIETY; Start 11/28/18 at 17:30 Albuterol/ Ipratropium (Duoneb) 3 ml Q4H RESP THERAPY PRN HHN SHORTNESS OF BREATH; Start 11/28/18 at 17:30 Hydralazine HCl (Apresoline) 10 mg Q6H PRN IV ELEVATED BLOOD PRESSURE; Start 11/28/18 at 17:30 Nitroglycerin (Nitroglycerin (Sl Tab) 0.4 Mg) 1 tab Q5M PRN SL ANGINA; Start 11/28/18 at 17:30 Aspirin (Ecotrin) 325 mg DAILY PO Last administered on 11/29/18at 08:58; Admin Dose 325 MG; Start 11/29/18 at 09:00 Diagnostic Test (Pha) (Accu-Chek) 1 ea 02 XX Last administered on 11/29/18at 02:12; Admin Dose 1 EA; Start 11/29/18 at 02:00 Insulin Aspart (Novolog Insulin Pen) NOVOLOG *MILD* ALGORI... Q4 SC Last administered on 11/29/18at 09:23; Admin Dose 2 UNIT; Start 11/28/18 at 21:00 Miscellaneous Information 1 ea NOTE XX ; Start 11/28/18 at 18:00 Glucose (Glutose) 15 gm Q15M PRN PO DECREASED GLUCOSE; Start 11/28/18 at 18:00 Glucose (Glutose) 22.5 gm Q15M PRN PO DECREASED GLUCOSE; Start 11/28/18 at 18:00 Dextrose (D50w Syringe) 25 ml Q15M PRN IV DECREASED GLUCOSE; Start 11/28/18 at 18:00 Dextrose (D50w Syringe) 50 ml Q15M PRN IV DECREASED GLUCOSE; Start 11/28/18 at 18:00 Glucagon (Glucagen) 1 mg Q15M PRN IM DECREASED GLUCOSE; Start 11/28/18 at 18:00 Glucose (Glutose) 15 gm Q15M PRN BUCCAL DECREASED GLUCOSE; Start 11/28/18 at 18:00 Clopidogrel Bisulfate (plaVIX) 75 mg DAILY PO Last administered on 11/29/18at 08:57; Admin Dose 75 MG; Start 11/29/18 at 09:00 Pantoprazole (Protonix Tab) 40 mg DAILY@06 PO ; Start 11/29/18 at 06:00 BENNETT REHMAN Nov 29, 2018 11:21
[2018-11-29] MEDS: ATORVASTATIN 80 MG TAB PO SCH (11:50)
[2018-11-29] MEDS: SOD CHLORIDE 0.45% 1,000 ML IV SCH (11:51)
[2018-11-29] MEDS ORDERED: INSULIN ASPART [NOVOLOG] 3 ML PEN SC SCH (17:25)
[2018-11-29] MEDS: Insulin NOVOLOG SS MILD Algorithm (SS with meals and bedtime) SC SCH ×3 (17:43→21:00)
[2018-11-29] MEDS: ONDANSETRON 4 MG INJ IV PRN (19:23)
[2018-11-30] MEDS: ACCU-CHEK XX SCH (01:19)
[2018-11-30] MEDS: SOD CHLORIDE 0.45% 1,000 ML IV SCH (03:44)
[2018-11-30 03:55] VITALS: BP 173/79; PULSE 77; RESP 20
[2018-11-30] MEDS: PANTOPRAZOLE (EC) 40 MG TAB PO SCH (06:00)
--- NOTE | 2018-11-30 07:32 | RADRPT ---
Echocardiogram Report Patient Name: SANDY REDMANPatient ID: [id number] : 1945 (73y 3m)Study Date: 11/29/2018 9:07:45 AM Gender: FAccession #: [id number] Tech: Yaniv Pavon [facility] Location: [id number] Ref.Physician: BENNETT REHMAN Height(Cm): BSA: Weight(Kg): Quality: AdequateOrder Physician: BENNETT REHMAN Account #: Procedures: Echocardiographic Report: Transthoracic echocardiogram with complete 2D, M-Mode, and doppler examination. Indications: Cerebrovascular Accident. Measurements: 2D/M Mode Doppler Measurement Value Normal Range Measurement Value Normal Range LVIDd 2D 4.3 [ 3.8 - 5.2 ] cm AV Peak Nigel 1.6 [ 100.0 - 170.0 ] cm/sec LVIDs 2D 2.8 [ 2.2 - 3.5 ] cm AV Peak PG 10.0 [ 2.0 - 9.0 ] mmHg LVPWd 2D 1.4 [ 0.6 - 0.9 ] cm LVOT Peak Nigel 1.1 [ 70.0 - 110.0 ] cm/sec IVSd 2D 1.5 [ 0.6 - 0.9 ] cm LVOT Peak PG 5.0 [ 2.0 - 6.0 ] mmHg AoR Diam 2D 3.0 [ 2.3 - 3.1 ] cm MV E Peak Nigel 0.8 [ 60.0 - 130.0 ] cm/sec EDV 2D 81.7 [ 46.0 - 106.0 ] ml MV A Peak Nigel 1.1 [ 100.0 - 120.0 ] cm/sec ESV 2D 29.8 [ 14.0 - 42.0 ] ml MV E/A 0.8 [ 0.8 - 1.5 ] ratio EF 2D 63.5 [ 54.0 - 74.0 ] percent MV Decel Time 134 [ 104 - 258 ] msec LA Dimen 2D 3.9 [ 2.7 - 3.8 ] cm Lat E` Nigel 0.1 [ 10.0 - 15.0 ] cm/sec Lateral E/E` 7.4 [ 1.0 - 2.0 ] ratio Med E` Nigel 0.1 cm/sec MV E/A 0.8 [ 0.8 - 1.5 ] ratio RA Pressure 10.0 mmHg Findings: Left Ventricle: Normal left ventricular systolic function. Normal left ventricular cavity size. Moderate concentric left ventricular hypertrophy. Ejection fraction is visually estimated at 65 %. Tissue Doppler/Mitral Doppler indices are consistent with impaired relaxation (Stage I diastolic dysfunction). Right Ventricle: Normal right ventricular size. Normal right ventricular systolic function. Left Atrium: The left atrium is normal in size. Right Atrium: The right atrium is normal in size. Mitral Valve: Mild mitral leaflet calcification. Mild mitral annular calcification. Trace mitral regurgitation. Aortic Valve: Aortic valve not well visualized. Aortic cusps appear mildly calcified. No aortic regurgitation. Tricuspid Valve: Normal appearance of the tricuspid valve. Unable to obtain RVSP due to minimal presence of tricuspid regurgitation. Pericardium: Normal pericardium with no significant pericardial effusion. Aorta: Normal aortic root. IVC: Normal size and normal respiratory collapse consistent with normal right atrial pressure. Conclusions: Normal left ventricular systolic function. Normal left ventricular cavity size. Moderate concentric left ventricular hypertrophy. Ejection fraction is visually estimated at 65 %. Tissue Doppler/Mitral Doppler indices are consistent with impaired relaxation (Stage I diastolic dysfunction). The left atrium is normal in size. Mild mitral leaflet calcification. Mild mitral annular calcification. Trace mitral regurgitation. Aortic valve not well visualized. Aortic cusps appear mildly calcified. No aortic regurgitation. Normal appearance of the tricuspid valve. Unable to obtain RVSP due to minimal presence of tricuspid regurgitation. Electronically Signed By: Mark Abel 2018-11-30 07:31:24 PDT
[2018-11-30] MEDS: Insulin NOVOLOG SS MILD Algorithm (SS with meals and bedtime) SC SCH ×4 (07:40→20:30)
[2018-11-30 08:06] VITALS: BP 163/85; PULSE 85; RESP 18
[2018-11-30] MEDS: ATORVASTATIN 80 MG TAB PO SCH (08:07)
[2018-11-30] MEDS: ASPIRIN (EC) 325 MG TAB PO SCH (08:07)
[2018-11-30] MEDS: CLOPIDOGREL 75 MG TAB PO SCH (08:07)
[2018-11-30] MEDS: HEPARIN 5,000 UNIT/1 ML VIAL SC SCH ×2 (08:16→20:30)
--- NOTE | 2018-11-30 10:57 | CONS ---
Assessment/Plan Assessment/Plan Assessment/Plan (Recall) 73 F w/ multiple cerebrovascular risk factors, who presents for evaluation of dizziness in the context of GI Sx.. She was noted on head CT to have an acute appearing R hemisphere infarction, for which neurology is consulted.. Patient is currently refusing MRI brain CUS is unremarkable LDL is at goal ESR 15, RPR neg, UDS neg P: Agree w/ plavix daily for secondary stroke prevention Consider 30-day holter as outpatient PT/OT/ST as necessary Other management per primary Will follow clinically Consultation Date/Type/Reason Admit Date/Time Nov 28, 2018 at 16:28 Type of Consult Neurology Reason for Consultation stroke Requesting Provider: BENNETT REHMAN Date/Time of Note DATE: 11/30/18 TIME: 10:55 24 HR Interval Summary Free Text/Dictation Refusing MRI Exam/Review of Systems Exam Vitals Vital Signs Date Temp Pulse Resp B/P (MAP) Pulse Ox O2 O2 Flow FiO2 Time Delivery Rate 11/30/18 98.6 85 18 163/85 96 08:06 (111) 11/30/18 Room Air 03:55 11/28/18 21 16:17 Results Result Diagram: 11/30/18 0538 11/30/18 0538 Results 24hrs Laboratory Tests Test 11/29/18 11:48 11/29/18 17:39 11/29/18 19:11 11/29/18 20:52 Bedside Glucose 225 H 284 H 249 H 237 H Test 11/30/18 04:00 11/30/18 05:38 11/30/18 07:36 Urine Opiates Screen Negative Urine Barbiturates Negative Urine Amphetamines Negative Screen Urine Benzodiazepines Negative Screen Urine Cocaine Screen Negative Urine Cannabinoids Negative White Blood Count 9.3 # Red Blood Count 4.40 Hemoglobin 12.2 Hematocrit 36.5 L Mean Corpuscular Volume 83.0 Mean Corpuscular 27.7 L Hemoglobin Mean Corpuscular 33.4 Hemoglobin Concent Red Cell Distribution 13.0 Width Platelet Count 124 L Mean Platelet Volume 12.0 H Immature Granulocytes % 0.900 H Neutrophils % 58.7 Lymphocytes % 29.3 Monocytes % 6.6 Eosinophils % 3.7 Basophils % 0.8 Nucleated Red Blood 0.0 Cells % Immature Granulocytes # 0.080 H Neutrophils # 5.5 Lymphocytes # 2.7 Monocytes # 0.6 Eosinophils # 0.3 Basophils # 0.1 Nucleated Red Blood 0.0 Cells # Sodium Level 141 Potassium Level 4.7 Chloride Level 107 Carbon Dioxide Level 26 Anion Gap 8 Blood Urea Nitrogen 35 H Creatinine 1.82 H Est Glomerular Filtrat Rate mL/min Glucose Level 232 H Calcium Level 9.0 Bedside Glucose 179 Medications Medication Current Medications IV Flush (NS 3 ml) 3 ml PER PROTOCOL IV ; Start 11/28/18 at 17:30 Ondansetron HCl (Zofran Inj) 4 mg Q6H PRN IV NAUSEA/VOMITING Last administered on 11/29/18at 19:23; Admin Dose 4 MG; Start 11/28/18 at 17:30 Acetaminophen (Tylenol Tab) 650 mg Q6H PRN PO .PAIN 1-3 OR TEMP; Start 11/28/18 at 17:30 Acetaminophen/ Hydrocodone Bitart ([place] (5/325)) 1 tab Q6H PRN PO .MOD PAIN 4- 6; Start 11/28/18 at 17:30 Morphine Sulfate (morphine) 2 mg Q4H PRN IV .SEVERE PAIN 7-10; Start 11/28/18 at 17:30 Docusate Sodium (Colace) 100 mg Q12H PRN PO .CONSTIPATION; Start 11/28/18 at 17:30 Magnesium Hydroxide (Milk Of Mag) 30 ml DAILY PRN PO .CONSTIPATION; Start 11/28/18 at 17:30 Heparin Sodium (Porcine) (Heparin (5000 Units/1ml)) 5,000 unit Q12 SC Last administered on 11/30/18at 08:16; Admin Dose 5,000 UNIT; Start 11/28/18 at 21:00 Lorazepam (Ativan) 0.5 mg Q6H PRN IV ANXIETY; Start 11/28/18 at 17:30 Albuterol/ Ipratropium (Duoneb) 3 ml Q4H RESP THERAPY PRN HHN SHORTNESS OF BREATH; Start 11/28/18 at 17:30 Hydralazine HCl (Apresoline) 10 mg Q6H PRN IV ELEVATED BLOOD PRESSURE; Start 11/28/18 at 17:30 Nitroglycerin (Nitroglycerin (Sl Tab) 0.4 Mg) 1 tab Q5M PRN SL ANGINA; Start 11/28/18 at 17:30 Aspirin (Ecotrin) 325 mg DAILY PO Last administered on 11/30/18 08:07; Admin Dose 325 MG; Start 11/29/18 at 09:00 Diagnostic Test (Pha) (Accu-Chek) 1 ea 02 XX Last administered on 11/29/18at 02:12; Admin Dose 1 EA; Start 11/29/18 at 02:00 Miscellaneous Information 1 ea NOTE XX ; Start 11/28/18 at 18:00 Glucose (Glutose) 15 gm Q15M PRN PO DECREASED GLUCOSE; Start 11/28/18 at 18:00 Glucose (Glutose) 22.5 gm Q15M PRN PO DECREASED GLUCOSE; Start 11/28/18 at 18:00 Dextrose (D50w Syringe) 25 ml Q15M PRN IV DECREASED GLUCOSE; Start 11/28/18 at 18:00 Dextrose (D50w Syringe) 50 ml Q15M PRN IV DECREASED GLUCOSE; Start 11/28/18 at 18:00 Glucagon (Glucagen) 1 mg Q15M PRN IM DECREASED GLUCOSE; Start 11/28/18 at 18:00 Glucose (Glutose) 15 gm Q15M PRN BUCCAL DECREASED GLUCOSE; Start 11/28/18 at 18:00 Clopidogrel Bisulfate (plaVIX) 75 mg DAILY PO Last administered on 11/30/18at 08:07; Admin Dose 75 MG; Start 11/29/18 at 09:00 Pantoprazole (Protonix Tab) 40 mg DAILY@06 PO ; Start 11/29/18 at 06:00 Atorvastatin Calcium (Lipitor) 80 mg DAILY PO Last administered on 11/30/18at 08:07; Admin Dose 80 MG; Start 11/29/18 at 11:30 Sodium Chloride 1,000 ml @ 75 mls/hr [id number] IV Last administered on 11/30/18at 03:44; Admin Dose 75 MLS/HR; Start 11/29/18 at 12:00 Insulin Aspart (Novolog Insulin Pen) (Adult SC Insulin - Mild Algorithm)... AC MEALS AND BEDTIME SC Last administered on 11/30/18at 07:40; Admin Dose 1 UNIT; Start 11/29/18 at 17:25 ORTIZ REDDING Nov 30, 2018 10:57
--- NOTE | 2018-11-30 11:53 | PN ---
Date/Time of Note Date/Time of Note DATE: 11/30/18 TIME: 11:45 Assessment/Plan VTE Prophylaxis Risk score (from Ns)>0 risk: 4 [place] [facility] [place] contraindicated: other Pharmacological prophylaxis: heparin Lines/Catheters IV [facility] Type [facility] Peripheral IV Assessment/Plan Hospital Course S: Patient seen by neurology team, again still refusing MRI. Also refused the NovoLog and heparin. O: VS - see below PE: GENERAL: lying in bed, answering questions appropriately. No acute distress. HEENT: Pupils equal, round, react to light. Extraocular muscles are intact. NECK: Supple, no thyromegaly. LUNGS: Clear to auscultation bilaterally. CARDIOVASCULAR: S1, S2 heard. No rubs or gallops. ABDOMEN: Soft, nontender, nondistended. Normal bowel sounds. No rebound or guarding. MUSCULOSKELETAL: No lower extremity edema bilaterally. NEUROLOGIC: She has got 5/5 strength both in the upper and lower extremities bilaterally. Sensation appears to be intact in the upper and lower extremities bilaterally. Cranial nerves II through XII appear to be intact. 2D echo: Conclusions: Normal left ventricular systolic function. Normal left ventricular cavity size. Moderate concentric left ventricular hypertrophy. Ejection fraction is visually estimated at 65 %. Tissue Doppler/Mitral Doppler indices are consistent with impaired relaxation (Stage I diastolic dysfunction). The left atrium is normal in size. Mild mitral leaflet calcification. Mild mitral annular calcification. Trace mitral regurgitation. Aortic valve not well visualized. Aortic cusps appear mildly calcified. No aortic regurgitation. Normal appearance of the tricuspid valve. Unable to obtain RVSP due to minimal presence of tricuspid regurgitation. CT chest: IMPRESSION: 1. Scattered indeterminate pulmonary nodules are seen bilaterally measuring up to 6 mm in the left upper lobe - CT followup in 3-6 months is recommended to assess interval stability. 2. There is complete atelectasis / collapse of the right middle lobe, of uncertain etiology 3. Mild pulmonary emphysema. 4. Mild cardiomegaly. Coronary arterial and aortic atherosclerotic calcifications. 5. Right lobe of the thyroid gland is enlarged and multinodular, causing leftward deviation of the trachea - consider ultrasound correlation. 6. Moderate hepatic steatosis. Cholelithiasis, without evidence for cholecystitis. ASSESSMENT AND PLAN: 73-year-old female coming in with dizziness and near syncopal event, nausea, vomiting with signs of acute or recent infarct of the brain. 1. Acute cerebrovascular accident-this is what it appears to be, based on what was found on the head CT scan imaging results. -Follow-up further recommendations from neurology consult, echocardiogram. -Continue PT, OT and speech therapy evaluations. -Neuro checks every 4 hours, High-dose aspirin, Plavix as well. -Lipitor 80 mg daily 2. History of coronary artery disease with PCI. -Again, continue the aspirin and Plavix. -Restart some of patient's home blood pressure medicines 3. History of congestive heart failure. - Again, will restart some of patient's home blood pressure medicines now 4. Hypertension. See above. 5. Type 2 diabetes-A1c was 6.5 -We will restart patient's home insulins for now, sliding scale insulin. 6. Hyperkalemia. Again, she did receive in the ER, Kayexalate, albuterol and Humulin insulin. - Monitor BMP. 7. Signs of right paratracheal opacity or mass with left-sided tracheal deviation-CT chest results reviewed -We will go ahead and obtain ultrasound to further evaluate the thyroid gland. Result Diagram: 11/30/18 0538 11/30/18 0538 Results 24hrs Laboratory Tests Test 11/29/18 11:48 11/29/18 17:39 11/29/18 19:11 11/29/18 20:52 Bedside Glucose 225 H 284 H 249 H 237 H Test 11/30/18 04:00 11/30/18 05:38 11/30/18 07:36 Urine Opiates Screen Negative Urine Barbiturates Negative Urine Amphetamines Negative Screen Urine Benzodiazepines Negative Screen Urine Cocaine Screen Negative Urine Cannabinoids Negative White Blood Count 9.3 # Red Blood Count 4.40 Hemoglobin 12.2 Hematocrit 36.5 L Mean Corpuscular Volume 83.0 Mean Corpuscular 27.7 L Hemoglobin Mean Corpuscular 33.4 Hemoglobin Concent Red Cell Distribution 13.0 Width Platelet Count 124 L Mean Platelet Volume 12.0 H Immature Granulocytes % 0.900 H Neutrophils % 58.7 Lymphocytes % 29.3 Monocytes % 6.6 Eosinophils % 3.7 Basophils % 0.8 Nucleated Red Blood 0.0 Cells % Immature Granulocytes # 0.080 H Neutrophils # 5.5 Lymphocytes # 2.7 Monocytes # 0.6 Eosinophils # 0.3 Basophils # 0.1 Nucleated Red Blood 0.0 Cells # Sodium Level 141 Potassium Level 4.7 Chloride Level 107 Carbon Dioxide Level 26 Anion Gap 8 Blood Urea Nitrogen 35 H Creatinine 1.82 H Est Glomerular Filtrat Rate mL/min Glucose Level 232 H Calcium Level 9.0 Bedside Glucose 179 Exam/Review of Systems Exam Vitals Vital Signs Date Temp Pulse Resp B/P (MAP) Pulse Ox O2 O2 Flow FiO2 Time Delivery Rate 11/30/18 98.6 85 18 163/85 96 08:06 (111) 11/30/18 Room Air 03:55 11/28/18 21 16:17 Results Results 24hrs Laboratory Tests Test 11/29/18 11:48 11/29/18 17:39 11/29/18 19:11 11/29/18 20:52 Bedside Glucose 225 H 284 H 249 H 237 H Test 11/30/18 04:00 11/30/18 05:38 11/30/18 07:36 Urine Opiates Screen Negative Urine Barbiturates Negative Urine Amphetamines Negative Screen Urine Benzodiazepines Negative Screen Urine Cocaine Screen Negative Urine Cannabinoids Negative White Blood Count 9.3 # Red Blood Count 4.40 Hemoglobin 12.2 Hematocrit 36.5 L Mean Corpuscular Volume 83.0 Mean Corpuscular 27.7 L Hemoglobin Mean Corpuscular 33.4 Hemoglobin Concent Red Cell Distribution 13.0 Width Platelet Count 124 L Mean Platelet Volume 12.0 H Immature Granulocytes % 0.900 H Neutrophils % 58.7 Lymphocytes % 29.3 Monocytes % 6.6 Eosinophils % 3.7 Basophils % 0.8 Nucleated Red Blood 0.0 Cells % Immature Granulocytes # 0.080 H Neutrophils # 5.5 Lymphocytes # 2.7 Monocytes # 0.6 Eosinophils # 0.3 Basophils # 0.1 Nucleated Red Blood 0.0 Cells # Sodium Level 141 Potassium Level 4.7 Chloride Level 107 Carbon Dioxide Level 26 Anion Gap 8 Blood Urea Nitrogen 35 H Creatinine 1.82 H Est Glomerular Filtrat Rate mL/min Glucose Level 232 H Calcium Level 9.0 Bedside Glucose 179 Medications Medication Current Medications IV Flush (NS 3 ml) 3 ml PER PROTOCOL IV ; Start 11/28/18 at 17:30 Ondansetron HCl (Zofran Inj) 4 mg Q6H PRN IV NAUSEA/VOMITING Last administered on 11/29/18at 19:23; Admin Dose 4 MG; Start 11/28/18 at 17:30 Acetaminophen (Tylenol Tab) 650 mg Q6H PRN PO .PAIN 1-3 OR TEMP; Start 11/28/18 at 17:30 Acetaminophen/ Hydrocodone Bitart ([address] (5/325)) 1 tab Q6H PRN PO .MOD PAIN 4- 6; Start 11/28/18 at 17:30 Morphine Sulfate (morphine) 2 mg Q4H PRN IV .SEVERE PAIN 7-10; Start 11/28/18 at 17:30 Docusate Sodium (Colace) 100 mg Q12H PRN PO .CONSTIPATION; Start 11/28/18 at 17:30 Magnesium Hydroxide (Milk Of Mag) 30 ml DAILY PRN PO .CONSTIPATION; Start 11/28/18 at 17:30 Heparin Sodium (Porcine) (Heparin (5000 Units/1ml)) 5,000 unit Q12 SC Last administered on 11/30/18at 08:16; Admin Dose 5,000 UNIT; Start 11/28/18 at 21:00 Lorazepam (Ativan) 0.5 mg Q6H PRN IV ANXIETY; Start 11/28/18 at 17:30 Albuterol/ Ipratropium (Duoneb) 3 ml Q4H RESP THERAPY PRN HHN SHORTNESS OF BREATH; Start 11/28/18 at 17:30 Hydralazine HCl (Apresoline) 10 mg Q6H PRN IV ELEVATED BLOOD PRESSURE; Start 11/28/18 at 17:30 Nitroglycerin (Nitroglycerin (Sl Tab) 0.4 Mg) 1 tab Q5M PRN SL ANGINA; Start 11/28/18 at 17:30 Aspirin (Ecotrin) 325 mg DAILY PO Last administered on 11/30/18at 08:07; Admin Dose 325 MG; Start 11/29/18 at 09:00 Diagnostic Test (Pha) (Accu-Chek) 1 ea 02 XX Last administered on 11/29/18at 02:12; Admin Dose 1 EA; Start 11/29/18 at 02:00 Miscellaneous Information 1 ea NOTE XX ; Start 11/28/18 at 18:00 Glucose (Glutose) 15 gm Q15M PRN PO DECREASED GLUCOSE; Start 11/28/18 at 18:00 Glucose (Glutose) 22.5 gm Q15M PRN PO DECREASED GLUCOSE; Start 11/28/18 at 18:00 Dextrose (D50w Syringe) 25 ml Q15M PRN IV DECREASED GLUCOSE; Start 11/28/18 at 18:00 Dextrose (D50w Syringe) 50 ml Q15M PRN IV DECREASED GLUCOSE; Start 11/28/18 at 18:00 Glucagon (Glucagen) 1 mg Q15M PRN IM DECREASED GLUCOSE; Start 11/28/18 at 18:00 Glucose (Glutose) 15 gm Q15M PRN BUCCAL DECREASED GLUCOSE; Start 11/28/18 at 18:00 Clopidogrel Bisulfate (plaVIX) 75 mg DAILY PO Last administered on 11/30/18at 08:07; Admin Dose 75 MG; Start 11/29/18 at 09:00 Pantoprazole (Protonix Tab) 40 mg DAILY@06 PO ; Start 11/29/18 at 06:00 Atorvastatin Calcium (Lipitor) 80 mg DAILY PO Last administered on 11/30/18at 08:07; Admin Dose 80 MG; Start 11/29/18 at 11:30 Sodium Chloride 1,000 ml @ 75 mls/hr [id number] IV Last administered on 11/30/18at 03:44; Admin Dose 75 MLS/HR; Start 11/29/18 at 12:00 Insulin Aspart (Novolog Insulin Pen) (Adult SC Insulin - Mild Algorithm)... AC MEALS AND BEDTIME SC Last administered on 11/30/18at 07:40; Admin Dose 1 UNIT; Start 11/29/18 at 17:25 BENNETT REHMAN Nov 30, 2018 11:53
[2018-11-30 12:00] VITALS: BP 122/84; PULSE 84; RESP 20
[2018-11-30] MEDS: SOD CHLORIDE 0.9% 1,000 ML IV SCH (12:14)
[2018-11-30] MEDS ORDERED: INSULIN GLARGINE [LANTus] (100 UNITS/ML) SYG SC SCH (13:00)
[2018-11-30] MEDS: ONDANSETRON 4 MG INJ IV PRN (14:39)
[2018-11-30 16:00] VITALS: BP 150/78; PULSE 96; RESP 20
[2018-11-30] MEDS ORDERED: INSULIN ASPART 30 UNIT SQ SCH (17:25)
[2018-11-30 20:00] VITALS: BP 178/88; PULSE 87; RESP 19
[2018-12-01] VITALS: BP 114/59; PULSE 62; RESP 18
[2018-12-01] MEDS: ACCU-CHEK XX SCH (02:00)
[2018-12-01] MEDS: SOD CHLORIDE 0.9% 1,000 ML IV SCH ×2 (02:15→11:35)
[2018-12-01 04:00] VITALS: BP 171/77; PULSE 63; RESP 18
[2018-12-01] MEDS: PANTOPRAZOLE (EC) 40 MG TAB PO SCH (05:26)
[2018-12-01 07:26] VITALS: BP 153/83; PULSE 74; RESP 18
[2018-12-01] MEDS: Insulin NOVOLOG SS MILD Algorithm (SS with meals and bedtime) SC SCH ×2 (07:44→11:32)
[2018-12-01] MEDS ORDERED: INSULIN GLARGINE [LANTus] (100 UNITS/ML) SYG SC SCH (08:00)
[2018-12-01] MEDS: CLOPIDOGREL 75 MG TAB PO SCH (08:31)
[2018-12-01] MEDS: ASPIRIN (EC) 325 MG TAB PO SCH (08:31)
[2018-12-01] MEDS: ATORVASTATIN 80 MG TAB PO SCH (08:31)
[2018-12-01] MEDS: HEPARIN 5,000 UNIT/1 ML VIAL SC SCH (08:32)
[2018-12-01] MEDS ORDERED: TOLTERODINE (SR) 4 MG CAP PO SCH (09:00)
[2018-12-01 11:12] VITALS: BP 112/64; PULSE 66; RESP 18
[2018-12-01] MEDS ORDERED: MAGNESIUM SULFATE 1 GM/D5W 100 ML IVPB ONE (12:00)
--- NOTE | 2018-12-01 13:14 | PDOCDIS ---
Discharge Instructions CONDITION [id number] Patient Condition: [id number] Stable HOME CARE INSTRUCTIONS: [id number] Diet Instructions: [id number] Low Fat /Cholesterol ACTIVITY: [id number] Activity Restrictions: [id number] Slowly Increase Activity Rest between Activity Avoid heavy lifting FOLLOW UP/APPOINTMENTS Follow-up Plan Please take your medication as prescribed, see your doctor the clinic in the next 1 week. BENNETT REHMAN Dec 01, 2018 13:14
[2018-12-01] MEDS ORDERED: ATOR-2 PO (13:18)
--- NOTE | 2018-12-01 13:22 | DS ---
Date/Time of Note Date/Time of Note DATE: 12/01/18 TIME: 13:16 Discharge Summary Admission/Discharge Info Admit Date/Time Nov 28, 2018 at 16:28 Discharge Date/Time Discharge Diagnosis 1. Acute cerebrovascular accident-found on the head CT scan imaging results. 2. History of coronary artery disease with PCI. 3. History of congestive heart failure. 4. Hypertension. 5. Type 2 diabetes-A1c was 6.5 6. Hyperkalemia -resolved again, she did receive in the ER, Kayexalate, albuterol and Humulin insulin. 7. Signs of right paratracheal opacity or mass with left-sided tracheal deviation-CT chest results and thyroid ultrasound results reviewed: Outpatient follow-up with endocrinology team for further evaluation and possible biopsy then Patient Condition: Stable Procedures Head CT: IMPRESSION: 1. Loss of espinoza-white differentiation within the right temporal parietal occipital region suggesting acute / recent infarction. Consider CTA of the head/neck or noncontrast MRI of the brain as clinically warranted. 2. No acute intracranial hemorrhage. 3. Moderate to severe ventriculomegaly which is greater than sulcal prominence suggesting central greater than peripheral volume loss. A component of normal pressure hydrocephalus is not excluded. 4. Mild chronic microvascular ischemic changes. 5. Mild to moderate left maxillary sinus air fluid level suggesting acute sinusitis. 2D echo: Conclusions: Normal left ventricular systolic function. Normal left ventricular cavity size. Moderate concentric left ventricular hypertrophy. Ejection fraction is visually estimated at 65 %. Tissue Doppler/Mitral Doppler indices are consistent with impaired relaxation (Stage I diastolic dysfunction). The left atrium is normal in size. Mild mitral leaflet calcification. Mild mitral annular calcification. Trace mitral regurgitation. Aortic valve not well visualized. Aortic cusps appear mildly calcified. No aortic regurgitation. Normal appearance of the tricuspid valve. Unable to obtain RVSP due to minimal presence of tricuspid regurgitation. CT chest: IMPRESSION: 1. Scattered indeterminate pulmonary nodules are seen bilaterally measuring up to 6 mm in the left upper lobe - CT followup in 3-6 months is recommended to assess interval stability. 2. There is complete atelectasis / collapse of the right middle lobe, of uncertain etiology 3. Mild pulmonary emphysema. 4. Mild cardiomegaly. Coronary arterial and aortic atherosclerotic calcifications. 5. Right lobe of the thyroid gland is enlarged and multinodular, causing leftward deviation of the trachea - consider ultrasound correlation. 6. Moderate hepatic steatosis. Cholelithiasis, without evidence for cholecystitis. Hx of Present Illness 73-year-old female with past medical history of CHF, CAD with stent placement, hypertension, type 2 diabetes, CKD, who comes in with dizziness. The patient also complained of some nausea and some nonbilious, nonbloody vomiting symptoms again this morning. The patient may have had a near syncopal event in the morning. She also complained of some loose stools but no overt diarrhea. Den ied any chest pain or shortness of breath. No constipation, no abdominal pain, no fevers or chills. When she came in today, she had imaging study performed of the brain CT scan that showed loss of espinoza-white differentiation within the right temporoparietal occipital region suggesting acute or recent infarction. There is also moderate to severe ventriculomegaly which is greater than sulcal prominence suggesting central greater than peripheral volume loss, a component of normal pressure hydrocephalus not excluded. Hospital Course Patient was admitted with acute stroke. Seen by neurology team during this hospital stay. She worked with physical therapy, occupational therapy, evaluated by speech therapy team. She was able to ambulate, tolerated p.o. diet. She had no other significant focal deficits. She continued on high-dose Lipitor, aspirin, Plavix while she was here as recommended by neurology team. Her vital signs are stable on day of discharge. There was an abnormal finding with a thyroid gland both on the CT chest findings and the thyroid ultrasound results. This was discussed with bottomer operator who recommended outpatient follow-up for possible biopsy at that time of the thyroid gland. This was relayed to the patient and the family who agreed for this. Patient be discharged home today improved condition. See below for full list of discharge medications. Home Meds Reported Medications Clonidine Hcl* (Clonidine Hcl*) 0.1 Mg Tab, 0.1 MG PO DAILY, TAB 11/28/18 Carvedilol* (Carvedilol*) 12.5 Mg Tablet, 12.5 MG PO BID, #60 TAB 11/28/18 Insulin Glargine,Hum.rec.anlog (Basaglar Kwikpen U-100) 100 Unit/1 Ml Insuln.pen, 50 UNIT SC QAM, EA 11/28/18 Clopidogrel Bisulfate* (Clopidogrel Bisulfate*) 75 Mg Tablet, 75 MG PO DAILY, #30 TAB 11/28/18 Sitagliptin* (Januvia*) 100 Mg Tablet, 100 MG PO DAILY, #30 TAB 11/28/18 Olmesartan/Hydrochlorothiazide (Olmesartan-Hctz 40-12.5 mg Tab) 1 Each Tablet, 1 EACH PO DAILY, TAB 11/28/18 Aspirin* (Aspirin* EC) 81 Mg Tablet.dr, 81 MG PO DAILY, TAB 11/28/18 Insulin Aspart (Novolog) 100 Unit/1 Ml Vial, 30 UNIT SQ AC DINNER, VIAL 11/28/18 Dexlansoprazole (Dexilant) 60 Mg Cap.mp, 60 MG PO DAILY, #30 CAP 11/28/18 Tolterodine Tartrate* (Tolterodine Tartrate* ER) 4 Mg Cap.er.24h, 4 MG PO DAILY, #30 CAP 11/28/18 Discontinued Reported Medications Insulin Aspart* (Novolog Insulin Pen*) 100 Unit/Ml Soln, 30 UNIT SC WITH DINNER, EA 11/28/18 Ergocalciferol (Vitamin D2) (VITAMIN D2) 50,000 Unit Capsule, 00311 UNIT PO WEEKLY, CAP 03/23/18 Sitagliptin* (Januvia*) 100 Mg Tablet, 100 MG PO DAILY, #30 TAB 03/23/18 Clonidine Hcl* (Clonidine Hcl*) 0.1 Mg Tab, 0.1 MG PO DAILY, TAB 03/23/18 Insulin Aspart* (Novolog Insulin Pen*) 100 Unit/Ml Soln, 20 UNIT SC BID WITH MEALS, EA 03/23/18 Esomeprazole Mag Trihydrate (Nexium) 40 Mg Capsule.dr, 40 MG PO DAILY, #30 CAP 03/23/18 Insulin Glargine* (Lantus*) 100 Unit/Ml Soln, 50 UNIT SC DAILY, #1 VIAL 03/23/18 Olmesartan Medoxomil (Benicar) 40 Mg Tablet, 40 MG PO DAILY, #30 TAB 03/23/18 Aspirin* (Aspirin* Chew) 81 Mg Tab.chew, 81 MG PO DAILY, TAB.CHEW 03/23/18 Discontinued Scripts Ondansetron Hcl* (Zofran*) 4 Mg Tablet, 4 MG PO Q8H PRN for NAUSEA AND/OR VOMITING, #15 TAB Prov:ROSEANNE PLATT MD 03/23/18 Cephalexin* (Keflex*) 500 Mg Capsule, 500 MG PO TID for 7 Days, CAP Prov:ROSEANNE PLATT MD 03/23/18 Follow-up Plan Please take your medication as prescribed, see your doctor the clinic in the next 1 week. Primary Care Provider Not On Staff Doctor Time spent on discharge: > 30 minutes Pending Labs Laboratory Tests Test 11/30/18 17:15 11/30/18 20:15 12/01/18 05:59 12/01/18 07:41 Bedside 212 209 201 Glucose mg/dL (70-220) mg/dL (70-220) mg/dL (70-220) White Blood 9.6 Count 10^3/ul (4.8-1 0.8) Red Blood 4.50 Count 10^6/ul (4.20- 5.40) Hemoglobin 12.2 g/dl (12.0-16. 0) Hematocrit 36.6 % (37.0-47.0) Mean 81.3 Corpuscular fl (82.0-101.0 Volume ) Mean 27.1 Corpuscular pg (29.0-33.0) Hemoglobin Mean 33.3 Corpuscular g/dl (32.0-37. Hemoglobin Conc 0) ent Red Cell 12.9 Distribution % (11.5-14.5) Width Platelet Count 121 10^3/UL (140-4 15) Mean Platelet 11.7 Volume fl (7.4-10.4) Immature 1.100 Granulocytes % % (0.001-0.429 ) Neutrophils % 57.3 % (39.0-77.0) Lymphocytes % 29.5 % (15.0-51.0) Monocytes % 6.9 % (0.0-11.0) Eosinophils % 4.5 % (0.0-7.0) Basophils % 0.7 % (0.0-2.0) Nucleated Red 0.0 Blood Cells % /100WBC (0.0-0 .0) Immature 0.110 Granulocytes # 10^3/ul (0.0-0 .031) Neutrophils # 5.5 10^3/ul (1.6-7 .5) Lymphocytes # 2.8 10^3/ul (0.8-2 .9) Monocytes # 0.7 10^3/ul (0.3-0 .9) Eosinophils # 0.4 10^3/ul (0.0-0 .5) Basophils # 0.1 10^3/ul (0.0-0 .1) Nucleated Red 0.0 Blood Cells # 10^3/ul (0.0-0 .0) Sodium Level 142 mmol/L (135-14 4) Potassium 4.5 Level mmol/L (3.5-5. 1) Chloride Level 107 mmol/L (97-110 ) Carbon Dioxide 26 Level mmol/L (21-31) Anion Gap 9 (5-13) Blood Urea 26 Nitrogen mg/dl (7-20) Creatinine 1.49 mg/dl (0.44-1. 00) Est Glomerular mL/min (>60) Filtrat Rate mL/min Glucose Level 181 mg/dl (70-220) Calcium Level 9.4 mg/dl (8.4-10. 2) Phosphorus 3.3 Level mg/dl (2.5-4.9 ) Magnesium 1.6 Level mg/dl (1.7-2.5 ) Test 12/01/18 11:31 Bedside 230 Glucose mg/dL (70-220) BENNETT REHMAN Dec 01, 2018 13:22
[2018-12-01 15:17] VITALS: BP 114/56; PULSE 60; RESP 22
== END 2018-12-01 16:45 | disposition home or self-care (01) | DRG 65 ==
LOC: E/R 14:11 → TEL 16:28
PROVIDERS: ADMIT Hospitalist; ATTEND Hospitalist
DX: I63.9 Cerebral infarction, unspecified (principal); I13.0 Hypertensive heart and chronic kidney disease with heart failure and stage 1 through stage 4 chronic kidney disease, or unspecified chronic kidney disease; E11.22 Type 2 diabetes mellitus with diabetic chronic kidney disease; I50.9 Heart failure, unspecified; E87.5 Hyperkalemia; I25.10 Atherosclerotic heart disease of native coronary artery without angina pectoris; N18.9 Chronic kidney disease, unspecified; I25.2 Old myocardial infarction; Z95.5 Presence of coronary angioplasty implant and graft; R31.9 Hematuria, unspecified; D69.6 Thrombocytopenia, unspecified; J39.8 Other specified diseases of upper respiratory tract; R11.2 Nausea with vomiting, unspecified; K76.0 Fatty (change of) liver, not elsewhere classified; G93.89 Other specified disorders of brain
CPT/HCPCS: 36415; 70450; 71045; 71250; 76536; 80048; 80061; 80307; 81003; 82550; 82553; 82962; 83036; 83735; 84100; 84439; 84443; 84484; 85025; 85610; 85651; 85730; 86592; 92610; 93005; 93306; 93880; 94664; 97162; 97166; J1644; J1815; J2405; J3475; J7030

== ENCOUNTER 2018-12-06 18:57 | Inpatient (IN) | payer MEDICARE, OTHER ==
[~2018-12-06] VITALS: Ht 160 cm; Wt 97.9 kg
[~2018-12-06 18:57] MED LIST changes: +ASPI-817 PO; -ASPI-903 PO; +ATOR-2 PO; +CARV12.579 PO; -CEPH-443 PO; +CLOP75TA19 PO; +DEXL60CA2 PO; -ERGO500013 PO; +ERYT250C52 PO; -ESOM40CA PO; +INSU100I33 SC; -LANT3I SC; +MECL12.574 PO; +NOV SQ; -NOVO3I SC; +OLME1TAB83 PO; -OLME40TA13 PO; -ONDA4TAB8 PO; +TOLT4CAP13 PO
[2018-12-06] MEDS ORDERED: ONDANSETRON 4 MG INJ IV STA (19:19)
[2018-12-06] MEDS ORDERED: LIDOCAINE/MYLANTA 40 ML BTL PO STA (21:28)
[2018-12-06] MEDS ORDERED: BELLADONNA/PHENOBARBITAL TAB PO STA (21:28)
[2018-12-06] MEDS ORDERED: ONDANSETRON 4 MG INJ IV PRN (22:00)
[2018-12-06] MEDS ORDERED: GLUCOSE GEL 15 GRAM TUBE BUCCAL PRN (22:00)
[2018-12-06] MEDS ORDERED: GLUCOSE GEL 15 GRAM TUBE PO PRN ×2 (22:00)
[2018-12-06] MEDS ORDERED: GLUCAGON 1 MG INJ IM PRN (22:00)
[2018-12-06] MEDS ORDERED: ACETAMINOPHEN 325 MG TAB PO PRN ×2 (22:00)
[2018-12-06] MEDS ORDERED: NACL 0.9% 3 ML SYG IV SCH (22:00)
[2018-12-06] MEDS ORDERED: DOCUSATE SODIUM 100 MG CAP PO PRN (22:00)
[2018-12-06] MEDS ORDERED: DEXTROSE 50% 50 ML SYRINGE IV PRN ×2 (22:00)
[2018-12-06] MEDS ORDERED: BISACODYL (EC) 5 MG TAB PO PRN (22:00)
[2018-12-06] MEDS ORDERED: MECLIZINE 12.5 MG TAB PO ONE (23:30)
[2018-12-06] MEDS ORDERED: MAGNESIUM SULFATE 3 GM in DEXTROSE 5% 100 ML IVPB ONE (23:30)
[2018-12-06] MEDS ORDERED: DICYCLOMINE 10 MG CAP PO ONE (23:30)
[2018-12-07] VITALS (8 sets, daily range): BP systolic 77–141; BP diastolic 40–76; PULSE 56–78; RESP 14–18; Ht 160 cm; Wt 97.9 kg
[2018-12-07] MEDS: ACCU-CHEK XX SCH (02:00)
[2018-12-07] MEDS ORDERED: AL HYDROX/MG HYDROX/SIMETH 30 ML CUP PO PRN (02:30)
[2018-12-07] MEDS: PANTOPRAZOLE (EC) 40 MG TAB PO SCH (05:23)
[2018-12-07] MEDS: INSULIN ASPART [NOVOLOG] 3 ML PEN SC SCH ×5 (08:00→21:00)
[2018-12-07] MEDS: CLOPIDOGREL 75 MG TAB PO SCH (08:44)
[2018-12-07] MEDS: ATORVASTATIN 80 MG TAB PO SCH (08:44)
[2018-12-07] MEDS: INSULIN GLARGINE [LANTus] (100 UNITS/ML) SYG SC SCH (08:44)
[2018-12-07] MEDS: ASPIRIN (EC) 81 MG TAB PO SCH (08:44)
[2018-12-07] MEDS: ONDANSETRON 4 MG INJ IV PRN (08:56)
[2018-12-07] MEDS ORDERED: HYDROCHLOROTHIAZIDE 12.5 MG CAP PO SCH (09:00)
[2018-12-07] MEDS ORDERED: LOSARTAN 50 MG TAB PO SCH (09:00)
[2018-12-07] MEDS ORDERED: SOD CHLORIDE 0.9% 500 ML IV SCH (13:00)
[2018-12-07] MEDS: METOCLOPRAMIDE 10 MG INJ IV SCH ×2 (13:12→17:25)
[2018-12-07] MEDS ORDERED: MECLIZINE 12.5 MG TAB PO SCH (14:00)
[2018-12-07] MEDS ORDERED: MECLIZINE 25 MG TAB PO SCH (14:00)
[2018-12-07] MEDS ORDERED: ALPRAZOLAM 0.5 MG TAB PO SCH (14:00)
[2018-12-07] MEDS ORDERED: SOD CHLORIDE 0.9% 500 ML IV ONE ×3 (16:30→22:00)
[2018-12-07] MEDS ORDERED: POLYETHYLENE GLYCOL 17 GM PACKET PO PRN (16:30)
[2018-12-07] MEDS: SUCRALFATE (100 MG/ML) 10ML CUP PO SCH ×2 (17:25→20:02)
[2018-12-07] MEDS: MECLIZINE 12.5 MG TAB PO SCH (21:00)
[2018-12-07] MEDS: ALBUMIN HUMAN 25% 100 ML IV SCH (22:44)
[2018-12-08] VITALS (7 sets, daily range): BP systolic 120–150; BP diastolic 60–80; PULSE 57–75; RESP 18–20
[2018-12-08] MEDS: METOCLOPRAMIDE 10 MG INJ IV SCH ×2 (00:36→05:20)
[2018-12-08] MEDS: ALBUMIN HUMAN 25% 100 ML IV SCH (00:36)
[2018-12-08] MEDS: ACCU-CHEK XX SCH (02:00)
[2018-12-08] MEDS: PANTOPRAZOLE (EC) 40 MG TAB PO SCH (05:20)
[2018-12-08] MEDS: INSULIN ASPART [NOVOLOG] 3 ML PEN SC SCH ×5 (08:32→20:50)
[2018-12-08] MEDS: INSULIN GLARGINE [LANTus] (100 UNITS/ML) SYG SC SCH (08:34)
[2018-12-08] MEDS: CLOPIDOGREL 75 MG TAB PO SCH (11:03)
[2018-12-08] MEDS: MECLIZINE 12.5 MG TAB PO SCH ×3 (11:04→20:49)
[2018-12-08] MEDS: ASPIRIN (EC) 81 MG TAB PO SCH (11:04)
[2018-12-08] MEDS: ATORVASTATIN 80 MG TAB PO SCH (11:04)
[2018-12-08] MEDS: SUCRALFATE (100 MG/ML) 10ML CUP PO SCH ×4 (11:05→20:49)
[2018-12-08] MEDS: PSYLLIUM 28% PACKET PO SCH (14:50)
[2018-12-08] MEDS: HYOSCYAMINE 0.125 MG SUBL TAB PO SCH (16:59)
[2018-12-09] VITALS (7 sets, daily range): BP systolic 116–153; BP diastolic 58–78; PULSE 59–80; RESP 16–17
[2018-12-09] MEDS: HYOSCYAMINE 0.125 MG SUBL TAB PO SCH ×4 (00:05→21:56)
[2018-12-09] MEDS: ACCU-CHEK XX SCH (02:26)
[2018-12-09] MEDS: PANTOPRAZOLE (EC) 40 MG TAB PO SCH (05:44)
[2018-12-09] MEDS: INSULIN ASPART [NOVOLOG] 3 ML PEN SC SCH ×7 (08:36→21:00)
[2018-12-09] MEDS: INSULIN GLARGINE [LANTus] (100 UNITS/ML) SYG SC SCH (08:37)
[2018-12-09] MEDS: ATORVASTATIN 80 MG TAB PO SCH (08:37)
[2018-12-09] MEDS: SUCRALFATE (100 MG/ML) 10ML CUP PO SCH ×4 (08:37→21:06)
[2018-12-09] MEDS: MECLIZINE 12.5 MG TAB PO SCH ×3 (08:37→21:06)
[2018-12-09] MEDS: PSYLLIUM 28% PACKET PO SCH (08:37)
[2018-12-09] MEDS: CLOPIDOGREL 75 MG TAB PO SCH (08:37)
[2018-12-09] MEDS: ASPIRIN (EC) 81 MG TAB PO SCH (08:38)
[2018-12-09] MEDS: ONDANSETRON 4 MG INJ IV PRN (12:05)
[2018-12-09] MEDS ORDERED: LIDOCAINE 1% (MDV) 20 ML INJ ONE ×2 (17:04→17:40)
[2018-12-10] MEDS: ACCU-CHEK XX SCH (01:28)
[2018-12-10 02:00] VITALS: BP 127/64; PULSE 64; RESP 17
[2018-12-10] MEDS: HYOSCYAMINE 0.125 MG SUBL TAB PO SCH ×3 (06:25→22:34)
[2018-12-10] MEDS: PANTOPRAZOLE (EC) 40 MG TAB PO SCH (06:25)
[2018-12-10] MEDS: INSULIN ASPART [NOVOLOG] 3 ML PEN SC SCH ×4 (08:10→20:20)
[2018-12-10] MEDS: SUCRALFATE (100 MG/ML) 10ML CUP PO SCH ×4 (08:11→20:21)
[2018-12-10] MEDS: ASPIRIN (EC) 81 MG TAB PO SCH (08:11)
[2018-12-10] MEDS: CLOPIDOGREL 75 MG TAB PO SCH (08:11)
[2018-12-10] MEDS: PSYLLIUM 28% PACKET PO SCH (08:11)
[2018-12-10] MEDS: INSULIN GLARGINE [LANTus] (100 UNITS/ML) SYG SC SCH (08:11)
[2018-12-10] MEDS: MECLIZINE 12.5 MG TAB PO SCH ×2 (08:11→12:00)
[2018-12-10] MEDS: ATORVASTATIN 80 MG TAB PO SCH (08:13)
[2018-12-10 08:35] VITALS: BP 128/64; PULSE 74; RESP 18
[2018-12-10] MEDS: ONDANSETRON 4 MG INJ IV PRN (13:04)
[2018-12-10 13:39] VITALS: BP 133/63; PULSE 73
[2018-12-10] MEDS ORDERED: METOCLOPRAMIDE 10 MG INJ IV SCH (14:30)
[2018-12-10 15:21] VITALS: PULSE 84
[2018-12-10] MEDS: ERYTHROMYCIN BASE (DR) 250 MG CAP PO SCH ×2 (15:24→22:34)
[2018-12-10] MEDS: ONDANSETRON 4 MG INJ IV SCH ×2 (16:35→22:34)
[2018-12-10 20:00] VITALS: BP 137/65; PULSE 74; RESP 19
[2018-12-10] MEDS: METOCLOPRAMIDE 10 MG INJ IV SCH (20:21)
[2018-12-10] MEDS: LUBIPROSTONE 24 MCG CAP PO SCH (20:21)
[2018-12-11 02:00] VITALS: BP 106/52; PULSE 78; RESP 17
[2018-12-11] MEDS: ACCU-CHEK XX SCH (02:00)
[2018-12-11] MEDS: METOCLOPRAMIDE 10 MG INJ IV SCH ×4 (02:32→20:15)
[2018-12-11] MEDS: ONDANSETRON 4 MG INJ IV SCH ×4 (04:36→22:41)
[2018-12-11] MEDS: HYOSCYAMINE 0.125 MG SUBL TAB PO SCH ×3 (06:14→22:00)
[2018-12-11] MEDS: PANTOPRAZOLE (EC) 40 MG TAB PO SCH (06:14)
[2018-12-11] MEDS: ERYTHROMYCIN BASE (DR) 250 MG CAP PO SCH ×3 (06:14→22:00)
[2018-12-11 08:39] VITALS: BP 118/59; PULSE 68; RESP 18
[2018-12-11] MEDS: INSULIN ASPART [NOVOLOG] 3 ML PEN SC SCH ×4 (09:17→20:11)
[2018-12-11] MEDS: INSULIN GLARGINE [LANTus] (100 UNITS/ML) SYG SC SCH (09:18)
[2018-12-11] MEDS: SUCRALFATE (100 MG/ML) 10ML CUP PO SCH ×4 (09:19→20:17)
[2018-12-11] MEDS: LUBIPROSTONE 24 MCG CAP PO SCH ×2 (09:19→20:17)
[2018-12-11] MEDS: CLOPIDOGREL 75 MG TAB PO SCH (09:20)
[2018-12-11] MEDS: ASPIRIN (EC) 81 MG TAB PO SCH (09:20)
[2018-12-11] MEDS: PSYLLIUM 28% PACKET PO SCH (09:20)
[2018-12-11] MEDS: ATORVASTATIN 80 MG TAB PO SCH (09:20)
[2018-12-11] MEDS ORDERED: HYDROmorphONE 0.5 MG/0.5 ML SYG IV PRN (12:00)
[2018-12-11] MEDS: POLYETHYLENE GLYCOL 17 GM PACKET PO SCH ×2 (12:41→20:17)
[2018-12-11] MEDS: GABAPENTIN 300 MG CAP PO SCH ×2 (12:41→20:16)
[2018-12-11 14:29] VITALS: BP 109/58; PULSE 78; RESP 18
[2018-12-11 20:37] VITALS: BP 142/67; PULSE 78; RESP 19
[2018-12-12] VITALS (13 sets, daily range): BP systolic 100–179; BP diastolic 59–87; PULSE 59–80; RESP 16–27
[2018-12-12] MEDS: ACCU-CHEK XX SCH (02:00)
[2018-12-12] MEDS: METOCLOPRAMIDE 10 MG INJ IV SCH ×3 (02:32→14:00)
[2018-12-12] MEDS: PANTOPRAZOLE (EC) 40 MG TAB PO SCH (06:24)
[2018-12-12] MEDS: ONDANSETRON 4 MG INJ IV SCH ×4 (06:24→21:45)
[2018-12-12] MEDS: HYOSCYAMINE 0.125 MG SUBL TAB PO SCH ×3 (06:24→21:44)
[2018-12-12] MEDS: ERYTHROMYCIN BASE (DR) 250 MG CAP PO SCH ×3 (06:24→21:44)
[2018-12-12] MEDS: INSULIN ASPART [NOVOLOG] 3 ML PEN SC SCH ×4 (08:00→20:47)
[2018-12-12] MEDS: SUCRALFATE (100 MG/ML) 10ML CUP PO SCH ×4 (09:00→20:46)
[2018-12-12] MEDS: GABAPENTIN 300 MG CAP PO SCH ×3 (09:00→20:50)
[2018-12-12] MEDS: POLYETHYLENE GLYCOL 17 GM PACKET PO SCH ×2 (09:00→20:47)
[2018-12-12] MEDS: LUBIPROSTONE 24 MCG CAP PO SCH ×2 (09:00→20:47)
[2018-12-12] MEDS: PSYLLIUM 28% PACKET PO SCH (09:00)
[2018-12-12] MEDS: INSULIN GLARGINE [LANTus] (100 UNITS/ML) SYG SC SCH (10:16)
[2018-12-12] MEDS ORDERED: MAGNESIUM SULFATE 2 GM/50 ML 50 ML IVPB ONE (14:30)
[2018-12-12] MEDS ORDERED: FENTAnyl 50 MCG/ML VIAL IV PRN (15:00)
[2018-12-12] MEDS ORDERED: EPHEDrine 25 MG/5 ML SYG IV PRN (15:00)
[2018-12-12] MEDS ORDERED: METOCLOPRAMIDE 10 MG INJ IV PRN (15:00)
[2018-12-12] MEDS ORDERED: ONDANSETRON 4 MG INJ IV PRN (15:00)
[2018-12-12] MEDS ORDERED: PROPOFOL 20 ML ONE (15:04)
[2018-12-12] MEDS: ATORVASTATIN 80 MG TAB PO SCH (17:28)
[2018-12-12] MEDS: ASPIRIN (EC) 81 MG TAB PO SCH (17:28)
[2018-12-12] MEDS: CLOPIDOGREL 75 MG TAB PO SCH (17:28)
[2018-12-13] MEDS: ACCU-CHEK XX SCH (01:31)
[2018-12-13 02:00] VITALS: BP 131/63; PULSE 75; RESP 18
[2018-12-13] MEDS: ONDANSETRON 4 MG INJ IV SCH ×2 (04:00→10:00)
[2018-12-13] MEDS: ERYTHROMYCIN BASE (DR) 250 MG CAP PO SCH ×3 (06:37→23:01)
[2018-12-13] MEDS: PANTOPRAZOLE (EC) 40 MG TAB PO SCH (06:37)
[2018-12-13] MEDS: HYOSCYAMINE 0.125 MG SUBL TAB PO SCH ×3 (06:37→23:01)
[2018-12-13 07:58] VITALS: BP 147/73; PULSE 73; RESP 16
[2018-12-13] MEDS: INSULIN ASPART [NOVOLOG] 3 ML PEN SC SCH ×4 (09:04→20:39)
[2018-12-13] MEDS: INSULIN GLARGINE [LANTus] (100 UNITS/ML) SYG SC SCH (09:05)
[2018-12-13] MEDS: LUBIPROSTONE 24 MCG CAP PO SCH ×2 (09:06→20:36)
[2018-12-13] MEDS: SUCRALFATE (100 MG/ML) 10ML CUP PO SCH ×4 (09:06→20:38)
[2018-12-13] MEDS: PSYLLIUM 28% PACKET PO SCH (09:07)
[2018-12-13] MEDS: GABAPENTIN 300 MG CAP PO SCH ×3 (09:07→20:39)
[2018-12-13] MEDS: CLOPIDOGREL 75 MG TAB PO SCH (09:07)
[2018-12-13] MEDS: ATORVASTATIN 80 MG TAB PO SCH (09:07)
[2018-12-13] MEDS: POLYETHYLENE GLYCOL 17 GM PACKET PO SCH ×2 (09:07→20:39)
[2018-12-13] MEDS: ASPIRIN (EC) 81 MG TAB PO SCH (09:07)
[2018-12-13 14:29] VITALS: BP 147/67; PULSE 76; RESP 16
[2018-12-13] MEDS ORDERED: ONDANSETRON 4 MG INJ IV PRN (16:00)
[2018-12-13 21:19] VITALS: BP 157/74; PULSE 75; RESP 16
[2018-12-14] MEDS: ACCU-CHEK XX SCH (02:00)
[2018-12-14 03:06] VITALS: BP 134/63; PULSE 76; RESP 18
[2018-12-14] MEDS: ERYTHROMYCIN BASE (DR) 250 MG CAP PO SCH ×3 (06:25→21:32)
[2018-12-14] MEDS: PANTOPRAZOLE (EC) 40 MG TAB PO SCH (06:25)
[2018-12-14] MEDS: HYOSCYAMINE 0.125 MG SUBL TAB PO SCH (06:25)
[2018-12-14 07:42] VITALS: BP 138/66; PULSE 78; RESP 16
[2018-12-14] MEDS: INSULIN ASPART [NOVOLOG] 3 ML PEN SC SCH ×4 (08:00→21:31)
[2018-12-14] MEDS: INSULIN GLARGINE [LANTus] (100 UNITS/ML) SYG SC SCH (08:15)
[2018-12-14] MEDS: SUCRALFATE (100 MG/ML) 10ML CUP PO SCH ×5 (08:29→21:00)
[2018-12-14] MEDS: MECLIZINE 12.5 MG TAB PO PRN (08:29)
[2018-12-14] MEDS: CLOPIDOGREL 75 MG TAB PO SCH (08:29)
[2018-12-14] MEDS: POLYETHYLENE GLYCOL 17 GM PACKET PO SCH ×2 (08:29→08:34)
[2018-12-14] MEDS: ASPIRIN (EC) 81 MG TAB PO SCH (08:29)
[2018-12-14] MEDS: LUBIPROSTONE 24 MCG CAP PO SCH ×2 (08:29→21:32)
[2018-12-14] MEDS: GABAPENTIN 300 MG CAP PO SCH ×3 (08:29→21:32)
[2018-12-14] MEDS: ATORVASTATIN 80 MG TAB PO SCH (08:29)
[2018-12-14] MEDS: PSYLLIUM 28% PACKET PO SCH (08:34)
[2018-12-14] MEDS ORDERED: HYOSCYAMINE 0.125 MG SUBL TAB PO PRN (10:00)
[2018-12-14 14:31] VITALS: BP 108/59; PULSE 76; RESP 16
[2018-12-14 20:00] VITALS: BP 121/62; PULSE 79; RESP 18
[2018-12-15 02:00] VITALS: BP 100/59; PULSE 60; RESP 17
[2018-12-15] MEDS: ACCU-CHEK XX SCH (02:12)
[2018-12-15] MEDS: PANTOPRAZOLE (EC) 40 MG TAB PO SCH (06:00)
[2018-12-15] MEDS: ERYTHROMYCIN BASE (DR) 250 MG CAP PO SCH ×2 (06:01→14:22)
[2018-12-15 08:00] VITALS: BP 138/64; PULSE 96; RESP 16
[2018-12-15] MEDS: INSULIN ASPART [NOVOLOG] 3 ML PEN SC SCH ×3 (08:16→17:45)
[2018-12-15] MEDS: INSULIN GLARGINE [LANTus] (100 UNITS/ML) SYG SC SCH (08:33)
[2018-12-15] MEDS: LUBIPROSTONE 24 MCG CAP PO SCH (08:54)
[2018-12-15] MEDS: ASPIRIN (EC) 81 MG TAB PO SCH (08:54)
[2018-12-15] MEDS: GABAPENTIN 300 MG CAP PO SCH ×3 (08:55→13:00)
[2018-12-15] MEDS: POLYETHYLENE GLYCOL 17 GM PACKET PO SCH ×2 (08:55→09:00)
[2018-12-15] MEDS: PSYLLIUM 28% PACKET PO SCH ×2 (08:55→09:00)
[2018-12-15] MEDS: ATORVASTATIN 80 MG TAB PO SCH (08:55)
[2018-12-15] MEDS: SUCRALFATE (100 MG/ML) 10ML CUP PO SCH ×4 (08:55→17:00)
[2018-12-15] MEDS: CLOPIDOGREL 75 MG TAB PO SCH (08:55)
[2018-12-15] MEDS: MECLIZINE 12.5 MG TAB PO PRN ×2 (14:26→20:01)
[2018-12-15 14:30] VITALS: BP 126/70; PULSE 78; RESP 16
[2018-12-15 20:35] VITALS: BP 154/69; PULSE 62; RESP 18
== END 2018-12-15 20:18 | disposition home or self-care (01) | DRG 643 ==
LOC: E/R 18:57 → PP2 21:31 → EDBEDREQ 23:31 → EDBEDREQTM 23:31 → EDBEDREQSVC 23:31 → OBSVTOIN 12-07 00:08
PROVIDERS: ADMIT Family Medicine; ATTEND Internal Medicine
PROC: 0GBH3ZX Excision of Right Thyroid Gland Lobe, Percutaneous Approach, Diagnostic (ICD-10-PCS; principal; 2018-12-09)
PROC: 0DB68ZX Excision of Stomach, Via Natural or Artificial Opening Endoscopic, Diagnostic (ICD-10-PCS; 2018-12-12)
DX: E04.9 Nontoxic goiter, unspecified (principal); N17.0 Acute kidney failure with tubular necrosis; F07.81 Postconcussional syndrome; I95.9 Hypotension, unspecified; R42 Dizziness and giddiness; D49.7 Neoplasm of unspecified behavior of endocrine glands and other parts of nervous system; I12.9 Hypertensive chronic kidney disease with stage 1 through stage 4 chronic kidney disease, or unspecified chronic kidney disease; E11.22 Type 2 diabetes mellitus with diabetic chronic kidney disease; N18.3 Chronic kidney disease, stage 3 (moderate); K57.90 Diverticulosis of intestine, part unspecified, without perforation or abscess without bleeding; Z86.73 Personal history of transient ischemic attack (TIA), and cerebral infarction without residual deficits; Z79.02 Long term (current) use of antithrombotics/antiplatelets; R10.13 Epigastric pain; Z95.5 Presence of coronary angioplasty implant and graft; E66.9 Obesity, unspecified; Z68.38 Body mass index [BMI] 38.0-38.9, adult; F41.9 Anxiety disorder, unspecified; R11.2 Nausea with vomiting, unspecified; K20.9 Esophagitis, unspecified; E23.6 Other disorders of pituitary gland; D49.1 Neoplasm of unspecified behavior of respiratory system; D69.6 Thrombocytopenia, unspecified; J39.8 Other specified diseases of upper respiratory tract; K59.00 Constipation, unspecified; K27.9 Peptic ulcer, site unspecified, unspecified as acute or chronic, without hemorrhage or perforation
CPT/HCPCS: 70551; 70553; 71045; 74176; 76775; 76942; 80048; 80053; 81001; 81003; 82043; 82150; 82533; 82962; 83001; 83036; 83605; 83690; 83735; 83880; 84100; 84146; 84155; 84300; 84439; 84443; 84481; 84484; 85025; 85610; 85730; 86706; 86803; 87081; 87086; 87340; 88104; 88305; 88312; 93005; 93880; 96374; 97161; G0378; J1815; J2405; J2765; J3475; J7040; P9047